=== PATIENT | male | born 1945 | race Caucasian/White ===

== ENCOUNTER → 2016-07-14 | Outpatient (REF) | payer OTHER | LOC: M LAB REF 16:50 | PROVIDERS: ATTEND Family Medicine | DX: E11.65 Type 2 diabetes mellitus with hyperglycemia (principal) ==

== ENCOUNTER → 2017-01-16 | Outpatient (REF) | payer OTHER ==
[2017-01-16 18:11] LABS: BASO % 0.7 % (0.0-1.0); EOS # 0.4 10^3/uL (0.0-0.50); EOS % 6.5 % (0.0-3.0); IMMATURE GRANULOCYTE % 0.3 % (0-0); LYMPH # 1.4 10^3/uL (1.5-4.5); LYMPH % 23.6 % (24.0-44.0); MEAN CORPUSCULAR HEMOGLOBIN 30.8 pg (27.0-33.0); MEAN CORPUSCULAR HGB CONC 33.7 g/dl (32.0-36.5); MEAN CORPUSCULAR VOLUME 91.3 fl (80.0-96.0); MONO # 0.5 10^3/uL (0.0-0.8); NEUTROPHILS # 3.7 10^3/uL (1.8-7.7); NEUTROPHILS % 60.9 % (36.0-66.0); PLATELET COUNT, AUTOMATED 169 10^3/uL (150-450); RED CELL DISTRIBUTION WIDTH 13.2 % (11.5-14.5)
[2017-01-16 18:27] LABS: ALBUMIN 3.9 GM/DL (3.2-5.2); ALKALINE PHOSPHATASE 54 U/L (45-117); ALT/SGPT 24 U/L (12-78); ANION GAP 9 MEQ/L (8-16); AST/SGOT 19 U/L (7-37); BILIRUBIN,TOTAL 0.5 MG/DL (0.2-1.0); BLOOD UREA NITROGEN 18 MG/DL (7-18); CALCIUM LEVEL 8.8 MG/DL (8.8-10.2); CARBON DIOXIDE LEVEL 27 MEQ/L (21-32); CHLORIDE LEVEL 107 MEQ/L (98-107); CHOLESTEROL LEVEL 130 MG/DL (<200); CREATININE FOR GFR 0.92 MG/DL (0.70-1.30); GLOMERULAR FILTRATION RATE > 60.0 (>42); GLUCOSE, FASTING 106 MG/DL (83-110); POTASSIUM SERUM 4.2 MEQ/L (3.5-5.1); SODIUM LEVEL 143 MEQ/L (136-145); TOTAL PROTEIN 6.9 GM/DL (6.4-8.2); TRIGLYCERIDES LEVEL 137 MG/DL (<150)
== END ==
LOC: M LAB REF 17:55
PROVIDERS: ATTEND Family Medicine
DX: E11.21 Type 2 diabetes mellitus with diabetic nephropathy (principal); E78.4 Other hyperlipidemia; E11.65 Type 2 diabetes mellitus with hyperglycemia; I10 Essential (primary) hypertension

== ENCOUNTER 2017-06-11 12:45 | Day surgery (SDC) | payer BC, MEDICARE, OTHER ==
[2017-06-11] MEDS: NS 1,000 ML IV ×2 (13:40)
[2017-06-11] MEDS ORDERED: LIDOCAINE 2% INJ 100 MG/5 ML SDV (FOR ANES.) As Ordered ×2 (14:51)
[2017-06-11] MEDS ORDERED: PROPOFOL 200 MG/20 ML VIAL As Ordered ×4 (14:51)
== END 2017-06-11 14:42 | disposition home or self-care (01) ==
LOC: M OPP 12:45
DX: Z52.4 Kidney donor (principal); Z12.11 Encounter for screening for malignant neoplasm of colon; Z86.010 Personal history of colon polyps; D12.4 Benign neoplasm of descending colon; K63.5 Polyp of colon; Z80.0 Family history of malignant neoplasm of digestive organs; K62.1 Rectal polyp; I10 Essential (primary) hypertension; D12.2 Benign neoplasm of ascending colon; E10.9 Type 1 diabetes mellitus without complications; K63.89 Other specified diseases of intestine; C61 Malignant neoplasm of prostate; Z79.4 Long term (current) use of insulin; E78.5 Hyperlipidemia, unspecified; Z79.82 Long term (current) use of aspirin; Z95.5 Presence of coronary angioplasty implant and graft; Z79.899 Other long term (current) drug therapy; Z92.21 Personal history of antineoplastic chemotherapy; Z92.3 Personal history of irradiation; Z87.891 Personal history of nicotine dependence
CPT/HCPCS: 45385

== ENCOUNTER → 2018-04-16 | Outpatient (REF) | payer MEDICARE, OTHER ==
[~2018-04-16] MED LIST: HYDR25TAB PO; LANTINJ4 SQ; LISI-672 PO; METF500T13 PO; SIMV20TA2 PO; VITA400D PO
[2018-04-16 18:23] LABS: HEMOGLOBIN 13.7 g/dl (13.5-17.5); MEAN CORPUSCULAR HEMOGLOBIN 30.5 pg (27.0-33.0); MEAN CORPUSCULAR HGB CONC 33.4 g/dl (32.0-36.5); MEAN CORPUSCULAR VOLUME 91.3 fl (80.0-96.0); RED BLOOD COUNT 4.49 10^6/uL (4.30-6.10); WHITE BLOOD COUNT 6.1 10^3/uL (4.0-10.0)
[2018-04-16 18:39] LABS: BASO % 0.5 % (0.0-1.0); EOS % 6.2 % (0.0-3.0); LYMPH % 24.4 % (24.0-44.0); MONO % 8.8 % (0.0-5.0); NEUTROPHILS % 59.6 % (36.0-66.0); PLATELET COUNT, AUTOMATED 181 10^3/uL (150-450)
[2018-04-16 18:40] LABS: EOS # 0.4 10^3/uL (0.0-0.50); LYMPH # 1.5 10^3/uL (1.5-4.5); MONO # 0.5 10^3/uL (0.0-0.8); NEUTROPHILS # 3.7 10^3/uL (1.8-7.7)
[2018-04-16 19:07] LABS: ALT/SGPT 50 U/L (12-78); BILIRUBIN,TOTAL 0.7 MG/DL (0.2-1.0); BLOOD UREA NITROGEN 15 MG/DL (7-18); CALCIUM LEVEL 8.5 MG/DL (8.8-10.2); CARBON DIOXIDE LEVEL 25 MEQ/L (21-32); CHLORIDE LEVEL 104 MEQ/L (98-107); CHOLESTEROL LEVEL 87 MG/DL (<200); CREATININE FOR GFR 1.05 MG/DL (0.70-1.30); GLOMERULAR FILTRATION RATE > 60.0 (>42); GLUCOSE, FASTING 132 MG/DL (70-100); HDL CHOLESTEROL 29 MG/DL (>40); LDL CHOLESTEROL 43 MG/DL (<100); NON-HDL-C 58 MG/DL; SODIUM LEVEL 139 MEQ/L (136-145); TOTAL PROTEIN 7.1 GM/DL (6.4-8.2); TRIGLYCERIDES LEVEL 76 MG/DL (<150)
== END ==
LOC: M LAB REF 16:37
PROVIDERS: ATTEND Family Medicine
DX: Z00.00 Encounter for general adult medical examination without abnormal findings (principal); E11.21 Type 2 diabetes mellitus with diabetic nephropathy; E78.49 Other hyperlipidemia; E11.65 Type 2 diabetes mellitus with hyperglycemia; I10 Essential (primary) hypertension

== ENCOUNTER → 2019-03-24 | Outpatient (REF) | payer MEDICARE, OTHER ==
[~2019-03-24] MED LIST changes: -SIMV20TA2 PO; +SIMV20TA22 PO
[2019-03-24 19:34] LABS: C REACTIVE PROTEIN QUANTITATIV < 0.30 MG/DL (0.00-0.30); CPK CREATINE PHOSPHOKINASE 58 U/L (39-308); TOTAL PROTEIN 6.6 GM/DL (6.4-8.2)
[2019-03-24 19:36] LABS: FOLATE 12.9 NG/ML; VITAMIN B12 LEVEL 360 PG/ML
== END ==
LOC: M LABNEURO 17:12
PROVIDERS: ATTEND Psychiatry & Neurology Neurology
DX: G62.9 Polyneuropathy, unspecified (principal); E83.01 Wilson's disease; G72.9 Myopathy, unspecified

== ENCOUNTER → 2019-04-20 | Outpatient (REF) | payer MEDICARE, OTHER ==
[2019-04-20 19:36] LABS: BASO % 0.4 % (0.0-1.0); EOS # 0.4 10^3/uL (0.0-0.5); EOS % 5.4 % (0.0-3.0); HEMATOCRIT 41.4 % (42.0-52.0); HEMOGLOBIN 13.7 g/dl (13.5-17.5); LYMPH # 1.7 10^3/uL (1.5-5.0); LYMPH % 24.1 % (24.0-44.0); MEAN CORPUSCULAR HEMOGLOBIN 30.1 pg (27.0-33.0); MEAN CORPUSCULAR HGB CONC 33.1 g/dl (32.0-36.5); MONO # 0.8 10^3/uL (0.0-0.8); MONO % 10.9 % (0.0-5.0); NEUTROPHILS # 4.2 10^3/uL (1.5-8.5); NEUTROPHILS % 58.8 % (36.0-66.0); PLATELET COUNT, AUTOMATED 195 10^3/uL (150-450); RED BLOOD COUNT 4.55 10^6/uL (4.30-6.10); WHITE BLOOD COUNT 7.2 10^3/uL (4.0-10.0)
[2019-04-20 19:47] LABS: ALBUMIN 4.2 GM/DL (3.2-5.2); ALT/SGPT 25 U/L (12-78); BILIRUBIN,TOTAL 0.6 MG/DL (0.2-1.0); BLOOD UREA NITROGEN 15 MG/DL (7-18); CALCIUM LEVEL 9.8 MG/DL (8.8-10.2); CARBON DIOXIDE LEVEL 29 MEQ/L (21-32); CHLORIDE LEVEL 102 MEQ/L (98-107); CHOLESTEROL LEVEL 113 MG/DL (<200); CHOLESTEROL RISK RATIO 3.424 (<5); CREATININE FOR GFR 1.12 MG/DL (0.70-1.30); GLOMERULAR FILTRATION RATE > 60.0 (>42); GLUCOSE, FASTING 107 MG/DL (70-100); HDL CHOLESTEROL 33 MG/DL (>40); LDL CHOLESTEROL 44 MG/DL (<100); NON-HDL-C 80 MG/DL; POTASSIUM SERUM 3.9 MEQ/L (3.5-5.1); SODIUM LEVEL 138 MEQ/L (136-145); TOTAL PROTEIN 7.1 GM/DL (6.4-8.2); TRIGLYCERIDES LEVEL 178 MG/DL (<150); URIC ACID 7.2 MG/DL (3.5-7.2)
[2019-04-20 20:10] LABS: HEMOGLOBIN A1c 8.3 %
== END ==
LOC: M LAB REF 18:45
PROVIDERS: ATTEND Family Medicine
DX: Z68.41 Body mass index [BMI] 40.0-44.9, adult (principal); I25.10 Atherosclerotic heart disease of native coronary artery without angina pectoris; E11.40 Type 2 diabetes mellitus with diabetic neuropathy, unspecified; M10.09 Idiopathic gout, multiple sites; C61 Malignant neoplasm of prostate; Z00.00 Encounter for general adult medical examination without abnormal findings

== ENCOUNTER → 2020-09-04 | Outpatient (REF) | payer MEDICARE, OTHER ==
[~2020-09-04] MED LIST changes: +HYDR-3490 PO; -HYDR25TAB PO; -LISI-672 PO; +LISI30TA4 PO
[2020-09-04 19:12] LABS: CREATININE, URINE 76.8 MG/DL; MALB URINE SIEMENS 32.6 MG/L; MAU/CREAT RATIO 42.4 MCG/MG (0.0-30.0)
== END ==
LOC: M LAB REF 17:29
PROVIDERS: ATTEND Internal Medicine Endocrinology, Diabetes & Metabolism
DX: E11.65 Type 2 diabetes mellitus with hyperglycemia (principal)

== ENCOUNTER → 2021-08-29 | Outpatient (CLI) | payer MEDICARE, BC, OTHER ==
[~2021-08-29] MED LIST changes: +ALLO100T PO; +AMLO1TAB24 PO; +CEFD300CAP PO; +DOXY100T PO; +DULA3PEN SC; +INSULADS SC; +ISOVUE-370 76% 25ML SYRINGE As Ordered ONE; +LISI10TA22 PO; +METF-838 PO; +MUCI600T31 PO; +ONDA-196 PO; +XTAN40CA PO
== END ==
LOC: M RAD 09:42
DX: J82.82 Acute eosinophilic pneumonia (principal); J98.4 Other disorders of lung

== ENCOUNTER → 2022-04-16 | Outpatient (CLI) | payer MEDICARE, BC, OTHER ==
[~2022-04-16] MED LIST changes: -ISOVUE-370 76% 25ML SYRINGE As Ordered ONE
[2022-04-16 10:00] LABS: HEMATOCRIT 40.4 % (42.0-52.0); HEMOGLOBIN 13.4 g/dl (13.5-17.5); MEAN CORPUSCULAR HGB CONC 33.2 g/dl (32.0-36.5); MEAN CORPUSCULAR VOLUME 90.4 fl (80.0-96.0); PLATELET COUNT, AUTOMATED 153 10^3/uL (150-450); RED BLOOD COUNT 4.47 10^6/uL (4.30-6.10); WHITE BLOOD COUNT 8.4 10^3/uL (4.0-10.0)
[2022-04-16 10:30] LABS: BLOOD UREA NITROGEN 22 MG/DL (9-23); CALCIUM LEVEL 9.3 MG/DL (8.3-10.6); CARBON DIOXIDE LEVEL 25 MMOL/L (20-31); CHLORIDE LEVEL 101 MMOL/L (98-107); CREATININE FOR GFR 0.96 MG/DL (0.70-1.30); GLOMERULAR FILTRATION RATE > 60.0 (>42); GLUCOSE, FASTING 184 MG/DL (74-106); POTASSIUM SERUM 4.3 MMOL/L (3.5-5.1); SODIUM LEVEL 136 MMOL/L (136-145)
== END ==
LOC: M LAB 09:04
PROVIDERS: ATTEND Physician Assistant
DX: I50.32 Chronic diastolic (congestive) heart failure (principal)

== ENCOUNTER → 2022-06-25 | Outpatient (CLI) | payer MEDICARE, BC, OTHER ==
[2022-06-25 11:58] LABS: BLOOD UREA NITROGEN 22 MG/DL (9-23); CALCIUM LEVEL 9.1 MG/DL (8.3-10.6); CARBON DIOXIDE LEVEL 26 MMOL/L (20-31); CHLORIDE LEVEL 107 MMOL/L (98-107); CREATININE FOR GFR 1.13 MG/DL (0.70-1.30); GLOMERULAR FILTRATION RATE > 60.0 (>42); GLUCOSE, FASTING 205 MG/DL (74-106); POTASSIUM SERUM 4.7 MMOL/L (3.5-5.1); SODIUM LEVEL 141 MMOL/L (136-145)
== END ==
LOC: M LAB 11:01
PROVIDERS: ATTEND Internal Medicine Endocrinology, Diabetes & Metabolism
DX: I50.32 Chronic diastolic (congestive) heart failure (principal)

== ENCOUNTER 2022-07-12 23:50 | Inpatient (IN) | payer MEDICARE, BC, OTHER ==
[~2022-07-12] VITALS: Ht 180.3 cm; Wt 114.5 kg
[2022-07-13 00:45] LABS: INR 1.02; PROTHROMBIN TIME 13.6 SECONDS (12.5-14.5)
[2022-07-13 00:54] LABS: BASO % 0.3 % (0.0-1.0); CK-MB VALUE MASS < 1.0 NG/ML (<3.6); EOS # 0.2 10^3/uL (0.0-0.5); EOS % 1.4 % (0.0-3.0); HEMATOCRIT 38.3 % (42.0-52.0); HEMOGLOBIN 13.1 g/dl (13.5-17.5); LYMPH # 0.9 10^3/uL (1.5-5.0); LYMPH % 7.5 % (24.0-44.0); MEAN CORPUSCULAR HGB CONC 34.2 g/dl (32.0-36.5); MEAN CORPUSCULAR VOLUME 93.4 fl (80.0-96.0); MONO # 1.2 10^3/uL (0.0-0.8); MONO % 9.9 % (2.0-8.0); NEUTROPHILS # 9.3 10^3/uL (1.5-8.5); NEUTROPHILS % 79.7 % (36.0-66.0); PLATELET COUNT, AUTOMATED 141 10^3/uL (150-450); WHITE BLOOD COUNT 11.7 10^3/uL (4.0-10.0)
[2022-07-13 00:55] LABS: CPK CREATINE PHOSPHOKINASE 77 U/L (46-171); MB/CK RELATIVE INDEX 1.29 (< OR =4)
[2022-07-13 00:56] LABS: BLOOD UREA NITROGEN 36 MG/DL (9-23); CALCIUM LEVEL 8.1 MG/DL (8.3-10.6); CARBON DIOXIDE LEVEL 22 MMOL/L (20-31); CHLORIDE LEVEL 105 MMOL/L (98-107); CREATININE FOR GFR 1.72 MG/DL (0.70-1.30); GLUCOSE, FASTING 232 MG/DL (74-106); POTASSIUM SERUM 4.8 MMOL/L (3.5-5.1); SODIUM LEVEL 138 MMOL/L (136-145)
[2022-07-13 01:07] LABS: RSV AMPLIFICATION NEGATIVE (NEGATIVE)
[2022-07-13] MEDS ORDERED: NS 1,000 ML IV ONE (01:55)
[2022-07-13] MEDS ORDERED: cefTRIAXone SOD 2 GM in D5W MINI-BAG PLUS 50 ML IV ONE (02:35)
[2022-07-13] MEDS ORDERED: AZITHROMYCIN INJ 500 MG, VIAL MATE ADAPTER 1 EACH in NS 250 ML IV ONE (02:35)
[2022-07-13] MEDS ORDERED: LANTINJ4 INJ (03:12)
[2022-07-13] MEDS ORDERED: FARX1TAB3 PO (03:12)
[2022-07-13] MEDS ORDERED: REPA420I2 INJ (03:12)
[2022-07-13] MEDS ORDERED: SPIR-10 PO (03:12)
[2022-07-13] MEDS ORDERED: METO1TAB87 PO (03:12)
[2022-07-13] MEDS ORDERED: ASPI81TA26 PO (03:12)
[2022-07-13] MEDS ORDERED: CLOP75TA2 PO (03:12)
[2022-07-13] MEDS ORDERED: LISI10TA22 PO (03:12)
[2022-07-13] MEDS ORDERED: METF-838 PO ×2 (03:12)
[2022-07-13] MEDS ORDERED: APAP325T4 PO (03:15)
[2022-07-13] MEDS ORDERED: HOME MED LIST COMPLETE! XX SCH (03:20)
[2022-07-13] MEDS ORDERED: ONDANSETRON 4MG 2ML VIAL As Ordered ONE (04:44)
[2022-07-13] MEDS ORDERED: DEXTROSE 50% 50ML SYRINGE IV PRN (04:45)
[2022-07-13] MEDS ORDERED: GLUCAGON INJ 1MG VIAL SC PRN (04:45)
[2022-07-13] MEDS ORDERED: ONDANSETRON 4MG 2ML VIAL IV PRN (04:45)
[2022-07-13] MEDS ORDERED: GLUCOSE 4GM CHEW TABLET PO PRN (04:45)
[2022-07-13 05:20] VITALS: BP 126/69
[2022-07-13 05:37] LABS: ABG BASE EXCESS -7.7 (-2.0-2.0); ABG HCO3 18.6 MMOL/L (22.0-26.0); ABG O2 SATURATION 95.9 % (95.0-99.0); ABG PARTIAL PRESSURE O2 89.3 mmHg (75.0-100.0); ABG STANDARD HCO3 18.2 MMOL/L. (22.0-26.0); ABG TOTAL CO2 19.9 MMOL/L (23.0-31.0); ABG pH (ARTERIAL) 7.275 UNITS (7.350-7.450)
[2022-07-13] MEDS: LEVEMIR (INSULIN DETEMIR) 1 UNITS/0.01ML SC SCH ×2 (06:03→20:47)
[2022-07-13 07:33] VITALS: BP 109/59
[2022-07-13 07:42] LABS: BLOOD UREA NITROGEN 36 MG/DL (9-23); CALCIUM LEVEL 7.3 MG/DL (8.3-10.6); CARBON DIOXIDE LEVEL 19 MMOL/L (20-31); CHLORIDE LEVEL 107 MMOL/L (98-107); CK-MB VALUE MASS < 1.0 NG/ML (<3.6); CPK CREATINE PHOSPHOKINASE 127 U/L (46-171); GLOMERULAR FILTRATION RATE 44.6 (>42); GLUCOSE, FASTING 285 MG/DL (74-106); MB/CK RELATIVE INDEX 0.78 (< OR =4); POTASSIUM SERUM 4.5 MMOL/L (3.5-5.1); SODIUM LEVEL 137 MMOL/L (136-145)
[2022-07-13 07:59] LABS: ALBUMIN 2.9 G/DL (3.2-5.2); ALKALINE PHOSPHATASE 55 U/L (46-116); ALT/SGPT 10 U/L (7.0-40); AST/SGOT 10 U/L (<34); BILIRUBIN,DIRECT 0.3 MG/DL (<0.4); BILIRUBIN,TOTAL 0.6 MG/DL (0.3-1.2); TOTAL PROTEIN 5.6 G/DL (5.7-8.2)
[2022-07-13] MEDS ORDERED: DAPAGLIFLOZIN PROPANEDIOL 10MG TABLET (FARXIGA) PO SCH (09:00)
[2022-07-13] MEDS ORDERED: SPIRONOLACTONE 25 MG TAB PO SCH (09:00)
[2022-07-13] MEDS ORDERED: LEVEMIR (INSULIN DETEMIR) 1 UNITS/0.01ML SC SCH (09:00)
[2022-07-13] MEDS: METOPROLOL TART 25 MG TABLET PO SCH ×2 (09:00→20:46)
[2022-07-13] MEDS: INSULIN LISPRO (NovoLOG) PER UNIT SC SCH ×3 (09:18→17:50)
[2022-07-13] MEDS: DOXYCYCLINE HYCLATE 100MG TABLET PO SCH ×2 (09:18→20:46)
[2022-07-13] MEDS: CLOPIDOGREL 75 MG TAB PO SCH (09:18)
[2022-07-13] MEDS: ASPIRIN 81MG ENTERIC TABLET PO SCH (09:18)
[2022-07-13] MEDS: HEPARIN SOD (PORCINE) 5000UNITS/ML 1ML VIAL/SYRINGE SQ SCH ×2 (09:19→20:48)
[2022-07-13] MEDS ORDERED: ALBUTEROL SULFATE 2.5MG/0.5ML INH NEB SOLN NEB PRN (10:40)
[2022-07-13 11:07] LABS: BASO % 0.2 % (0.0-1.0); EOS % 0.3 % (0.0-3.0); HEMATOCRIT 37.3 % (42.0-52.0); HEMOGLOBIN 12.1 g/dl (13.5-17.5); LYMPH # 0.8 10^3/uL (1.5-5.0); LYMPH % 7.2 % (24.0-44.0); MEAN CORPUSCULAR HEMOGLOBIN 30.8 pg (27.0-33.0); MEAN CORPUSCULAR HGB CONC 32.4 g/dl (32.0-36.5); MEAN CORPUSCULAR VOLUME 94.9 fl (80.0-96.0); MONO # 1.1 10^3/uL (0.0-0.8); MONO % 9.4 % (2.0-8.0); NEUTROPHILS # 9.6 10^3/uL (1.5-8.5); NEUTROPHILS % 82.6 % (36.0-66.0); PLATELET COUNT, AUTOMATED 140 10^3/uL (150-450); RED BLOOD COUNT 3.93 10^6/uL (4.30-6.10); WHITE BLOOD COUNT 11.6 10^3/uL (4.0-10.0)
[2022-07-13] MEDS: IPRATROPIUM 0.5MG/ALBUTEROL 2.5MG INH SOL UD 3ML (DUONEB) NEB SCH ×2 (11:20→19:52)
[2022-07-13] MEDS: NS 1,000 ML IV SCH ×2 (11:25→20:49)
[2022-07-13 11:38] VITALS: BP 108/56
[2022-07-13] MEDS ORDERED: ACETAMINOPHEN TAB 650MG DOSE (2X325MG) PO ONE (12:50)
[2022-07-13 15:51] VITALS: BP 109/58
[2022-07-13 20:07] VITALS: BP 112/71
[2022-07-13] MEDS ORDERED: INSULIN LISPRO (NovoLOG) PER UNIT SC SCH (21:00)
[2022-07-14] VITALS (9 sets, daily range): BP systolic 125–128; BP diastolic 60–74; O2SAT 90–96
[2022-07-14] MEDS ORDERED: AZITHROMYCIN INJ 500 MG, VIAL MATE ADAPTER 1 EACH in NS 250 ML IV SCH (03:00)
[2022-07-14] MEDS ORDERED: cefTRIAXone SOD 1 GM in D5W MINI-BAG PLUS 50 ML IV SCH (04:00)
[2022-07-14 05:42] LABS: HEMATOCRIT 33.1 % (42.0-52.0); MEAN CORPUSCULAR HEMOGLOBIN 31.2 pg (27.0-33.0); MEAN CORPUSCULAR HGB CONC 33.2 g/dl (32.0-36.5); MEAN CORPUSCULAR VOLUME 93.8 fl (80.0-96.0); PLATELET COUNT, AUTOMATED 130 10^3/uL (150-450); RED BLOOD COUNT 3.53 10^6/uL (4.30-6.10); WHITE BLOOD COUNT 7.4 10^3/uL (4.0-10.0)
[2022-07-14] MEDS: NS 1,000 ML IV SCH (05:59)
[2022-07-14 06:10] LABS: ALBUMIN 2.7 G/DL (3.2-5.2); BILIRUBIN,TOTAL 0.4 MG/DL (0.3-1.2); CALCIUM LEVEL 7.5 MG/DL (8.3-10.6); CREATININE FOR GFR 1.52 MG/DL (0.70-1.30); GLOMERULAR FILTRATION RATE 47.3 (>42); POTASSIUM SERUM 4.3 MMOL/L (3.5-5.1); TOTAL PROTEIN 5.5 G/DL (5.7-8.2)
[2022-07-14] MEDS: IPRATROPIUM 0.5MG/ALBUTEROL 2.5MG INH SOL UD 3ML (DUONEB) NEB SCH (07:11)
[2022-07-14] MEDS ORDERED: LEVEMIR (INSULIN DETEMIR) 1 UNITS/0.01ML SC SCH (09:00)
[2022-07-14] MEDS: CLOPIDOGREL 75 MG TAB PO SCH (09:08)
[2022-07-14] MEDS: ASPIRIN 81MG ENTERIC TABLET PO SCH (09:08)
[2022-07-14] MEDS: METOPROLOL TART 25 MG TABLET PO SCH (09:08)
[2022-07-14] MEDS: DOXYCYCLINE HYCLATE 100MG TABLET PO SCH (09:08)
[2022-07-14] MEDS: HEPARIN SOD (PORCINE) 5000UNITS/ML 1ML VIAL/SYRINGE SQ SCH (09:09)
[2022-07-14] MEDS: INSULIN LISPRO (NovoLOG) PER UNIT SC SCH ×3 (09:09→16:36)
[2022-07-14] MEDS ORDERED: ALB2.5NEB NEB (14:16)
[2022-07-14] MEDS ORDERED: DOXY100T PO (14:16)
[2022-07-14] MEDS ORDERED: ONDA4INJ4 IV (14:16)
[2022-07-14] MEDS ORDERED: INSUDET SC (14:16)
[2022-07-14] MEDS ORDERED: IPRA0.00 NEB (14:16)
[2022-07-14] MEDS ORDERED: INSUHUMDS SC ×2 (14:16)
[2022-07-14] MEDS ORDERED: CEFU50TA PO (14:20)
[2022-07-14] MEDS ORDERED: LEVO1TAB39 PO (14:21)
== END 2022-07-14 16:41 | DRG 871 ==
LOC: EDBD 23:50 → M ED 23:50 → M ED INP 07-13 03:43 → ENRESERV 07-13 04:18 → M PCU 07-13 05:12
PROVIDERS: ADMIT Internal Medicine; ATTEND Internal Medicine
DX: A41.9 Sepsis, unspecified organism (principal); J18.9 Pneumonia, unspecified organism; J96.01 Acute respiratory failure with hypoxia; N17.9 Acute kidney failure, unspecified; E87.20 Acidosis, unspecified; I50.32 Chronic diastolic (congestive) heart failure; I11.0 Hypertensive heart disease with heart failure; I35.1 Nonrheumatic aortic (valve) insufficiency; L71.9 Rosacea, unspecified; J98.4 Other disorders of lung; D69.6 Thrombocytopenia, unspecified; R53.1 Weakness; R91.8 Other nonspecific abnormal finding of lung field; E11.65 Type 2 diabetes mellitus with hyperglycemia; I25.10 Atherosclerotic heart disease of native coronary artery without angina pectoris; Z85.46 Personal history of malignant neoplasm of prostate; Z92.3 Personal history of irradiation; Z79.82 Long term (current) use of aspirin; Z79.02 Long term (current) use of antithrombotics/antiplatelets; Z79.84 Long term (current) use of oral hypoglycemic drugs; Z79.899 Other long term (current) drug therapy; Z87.891 Personal history of nicotine dependence

== ENCOUNTER 2022-07-14 14:57 | Inpatient (IN) | payer MEDICARE, BC, OTHER ==
[~2022-07-14] VITALS: Ht 180.3 cm; Wt 110.2 kg
[~2022-07-14 14:57] MED LIST changes: +ALB2.5NEB NEB; +APAP325T4 PO; +ASPI81TA26 PO; +CEFU50TA PO; +CLOP75TA2 PO; +FARX1TAB3 PO; +INSUDET SC; +INSUHUMDS SC; +IPRA0.00 NEB; +LANTINJ4 INJ; +LEVO1TAB39 PO; +METO1TAB87 PO; +ONDA4INJ4 IV; +REPA420I2 INJ; +SPIR-10 PO
[2022-07-14] MEDS ORDERED: ACETAMINOPHEN TAB 650MG DOSE (2X325MG) PO PRN (16:35)
[2022-07-14] MEDS ORDERED: NS 1,000 ML IV ONE (16:35)
[2022-07-14 17:00] VITALS: BP 150/68; TEMP 98.1; O2SAT 94
[2022-07-14] MEDS ORDERED: LevoFLOXacin 500 MG TABLET PO SCH (18:00)
[2022-07-14] MEDS: LACTOBACILLUS ACIDOPHILUS CAP (BACID) PO SCH (18:26)
[2022-07-14] MEDS: COMBIVENT RESPIMAT 100-20MCG INHALER 4GM INH SCH (19:35)
[2022-07-14 20:00] VITALS: BP 155/70; TEMP 97.7; O2SAT 96
[2022-07-14] MEDS: guaiFENesin 200 MG TAB PO SCH (20:34)
[2022-07-14] MEDS: DOCUSATE SODIUM 100MG CAPSULE PO SCH (20:34)
[2022-07-14] MEDS: SENNA 8.6 MG TAB (SENOKOT) PO SCH (20:34)
[2022-07-14] MEDS: PANTOPRAZOLE 40MG TAB (PROTONIX) PO SCH (20:35)
[2022-07-14] MEDS: METOPROLOL TART 25 MG TABLET PO SCH (20:35)
[2022-07-14] MEDS ORDERED: INSULIN LISPRO (NovoLOG) PER UNIT SC SCH (21:00)
[2022-07-14] MEDS ORDERED: DEXTROSE 50% 50ML SYRINGE IV PRN (22:25)
[2022-07-14] MEDS ORDERED: GLUCOSE 4GM CHEW TABLET PO PRN (22:25)
[2022-07-14] MEDS ORDERED: GLUCAGON INJ 1MG VIAL SC PRN (22:25)
[2022-07-15 06:00] VITALS: BP 144/68; TEMP 98.4; O2SAT 95
[2022-07-15 06:23] LABS: BASO % 0.3 % (0.0-1.0); EOS # 0.4 10^3/uL (0.0-0.5); HEMATOCRIT 34.3 % (42.0-52.0); HEMOGLOBIN 11.3 g/dl (13.5-17.5); LYMPH # 0.7 10^3/uL (1.5-5.0); LYMPH % 8.7 % (24.0-44.0); MEAN CORPUSCULAR HGB CONC 32.9 g/dl (32.0-36.5); MONO # 0.6 10^3/uL (0.0-0.8); MONO % 7.7 % (2.0-8.0); NEUTROPHILS % 77.9 % (36.0-66.0); PLATELET COUNT, AUTOMATED 144 10^3/uL (150-450); RED BLOOD COUNT 3.65 10^6/uL (4.30-6.10); WHITE BLOOD COUNT 7.7 10^3/uL (4.0-10.0)
[2022-07-15 06:53] LABS: ALBUMIN 2.9 G/DL (3.2-5.2); BILIRUBIN,TOTAL 0.6 MG/DL (0.3-1.2); CALCIUM LEVEL 8.3 MG/DL (8.3-10.6); CREATININE FOR GFR 1.29 MG/DL (0.70-1.30); GLOMERULAR FILTRATION RATE 57.2 (>42); POTASSIUM SERUM 4.4 MMOL/L (3.5-5.1); TOTAL PROTEIN 6.1 G/DL (5.7-8.2)
[2022-07-15] MEDS: COMBIVENT RESPIMAT 100-20MCG INHALER 4GM INH SCH ×3 (07:17→19:29)
[2022-07-15] MEDS: DOCUSATE SODIUM 100MG CAPSULE PO SCH ×2 (09:00→21:11)
[2022-07-15] MEDS: guaiFENesin 200 MG TAB PO SCH ×2 (09:08→21:06)
[2022-07-15] MEDS: PANTOPRAZOLE 40MG TAB (PROTONIX) PO SCH ×2 (09:08→21:07)
[2022-07-15] MEDS: ASPIRIN 81MG ENTERIC TABLET PO SCH (09:08)
[2022-07-15] MEDS: CLOPIDOGREL 75 MG TAB PO SCH (09:09)
[2022-07-15] MEDS: SPIRONOLACTONE 25 MG TAB PO SCH (09:09)
[2022-07-15] MEDS: LACTOBACILLUS ACIDOPHILUS CAP (BACID) PO SCH ×2 (09:09→17:53)
[2022-07-15] MEDS: METOPROLOL TART 25 MG TABLET PO SCH ×2 (09:09→21:11)
[2022-07-15] MEDS: LEVEMIR (INSULIN DETEMIR) 1 UNITS/0.01ML SC SCH (09:11)
[2022-07-15] MEDS: INSULIN LISPRO (NovoLOG) PER UNIT SC SCH ×4 (09:11→21:00)
[2022-07-15 14:00] VITALS: BP 138/82; TEMP 98; O2SAT 95
[2022-07-15] MEDS: LevoFLOXacin 750 MG TABLET PO SCH (17:53)
[2022-07-15 20:00] VITALS: BP 133/60; TEMP 97.4; O2SAT 95
[2022-07-15] MEDS ORDERED: LEVEMIR (INSULIN DETEMIR) 1 UNITS/0.01ML SC SCH ×2 (21:00)
[2022-07-15] MEDS: SENNA 8.6 MG TAB (SENOKOT) PO SCH (21:06)
[2022-07-16 06:00] VITALS: BP 125/64; TEMP 97.6; O2SAT 96
[2022-07-16] MEDS: INSULIN LISPRO (NovoLOG) PER UNIT SC SCH ×4 (07:20→20:34)
[2022-07-16] MEDS: LACTOBACILLUS ACIDOPHILUS CAP (BACID) PO SCH ×2 (07:20→17:12)
[2022-07-16] MEDS: DOCUSATE SODIUM 100MG CAPSULE PO SCH ×2 (07:36→20:33)
[2022-07-16] MEDS: PANTOPRAZOLE 40MG TAB (PROTONIX) PO SCH ×2 (07:36→20:33)
[2022-07-16] MEDS: SPIRONOLACTONE 25 MG TAB PO SCH (07:36)
[2022-07-16] MEDS: CLOPIDOGREL 75 MG TAB PO SCH (07:36)
[2022-07-16] MEDS: ASPIRIN 81MG ENTERIC TABLET PO SCH (07:36)
[2022-07-16] MEDS: guaiFENesin 200 MG TAB PO SCH ×2 (07:36→20:34)
[2022-07-16] MEDS: METOPROLOL TART 25 MG TABLET PO SCH ×2 (07:37→20:34)
[2022-07-16] MEDS: LEVEMIR (INSULIN DETEMIR) 1 UNITS/0.01ML SC SCH ×2 (07:37→20:34)
[2022-07-16] MEDS: COMBIVENT RESPIMAT 100-20MCG INHALER 4GM INH SCH ×3 (08:00→20:18)
[2022-07-16 14:00] VITALS: BP 120/60; TEMP 97.7; O2SAT 96
[2022-07-16] MEDS: LevoFLOXacin 750 MG TABLET PO SCH (17:12)
[2022-07-16 20:00] VITALS: BP 123/60; TEMP 97.9; O2SAT 95
[2022-07-16] MEDS: SENNA 8.6 MG TAB (SENOKOT) PO SCH (20:33)
[2022-07-17 06:00] VITALS: BP 124/62; TEMP 97.9; O2SAT 97
[2022-07-17] MEDS: COMBIVENT RESPIMAT 100-20MCG INHALER 4GM INH SCH ×3 (07:07→20:27)
[2022-07-17] MEDS: INSULIN LISPRO (NovoLOG) PER UNIT SC SCH ×4 (09:06→21:00)
[2022-07-17] MEDS: LEVEMIR (INSULIN DETEMIR) 1 UNITS/0.01ML SC SCH ×2 (09:06→21:32)
[2022-07-17] MEDS: METOPROLOL TART 25 MG TABLET PO SCH ×2 (09:08→21:31)
[2022-07-17] MEDS: DOCUSATE SODIUM 100MG CAPSULE PO SCH ×2 (09:08→21:31)
[2022-07-17] MEDS: guaiFENesin 200 MG TAB PO SCH ×2 (09:08→21:31)
[2022-07-17] MEDS: ASPIRIN 81MG ENTERIC TABLET PO SCH (09:08)
[2022-07-17] MEDS: CLOPIDOGREL 75 MG TAB PO SCH (09:09)
[2022-07-17] MEDS: PANTOPRAZOLE 40MG TAB (PROTONIX) PO SCH ×2 (09:09→21:31)
[2022-07-17] MEDS: LACTOBACILLUS ACIDOPHILUS CAP (BACID) PO SCH ×2 (09:09→17:36)
[2022-07-17] MEDS: SPIRONOLACTONE 25 MG TAB PO SCH (09:09)
[2022-07-17 14:00] VITALS: BP 113/57; TEMP 97.2; O2SAT 96
[2022-07-17] MEDS: LevoFLOXacin 750 MG TABLET PO SCH (17:35)
[2022-07-17 20:00] VITALS: BP 128/61; TEMP 97.4; O2SAT 95
[2022-07-17] MEDS: oxyBUTYnin *DITROPAN XL* 5 MG TABCR PO SCH (21:31)
[2022-07-17] MEDS: SENNA 8.6 MG TAB (SENOKOT) PO SCH (21:31)
[2022-07-18] MEDS: COMBIVENT RESPIMAT 100-20MCG INHALER 4GM INH SCH ×3 (06:48→19:46)
[2022-07-18 06:51] VITALS: BP 120/60; TEMP 97.6; O2SAT 96
[2022-07-18] MEDS: DOCUSATE SODIUM 100MG CAPSULE PO SCH ×2 (08:50→20:30)
[2022-07-18] MEDS: LACTOBACILLUS ACIDOPHILUS CAP (BACID) PO SCH ×2 (08:50→17:22)
[2022-07-18] MEDS: guaiFENesin 200 MG TAB PO SCH ×2 (08:50→20:30)
[2022-07-18] MEDS: PANTOPRAZOLE 40MG TAB (PROTONIX) PO SCH ×2 (08:50→20:30)
[2022-07-18] MEDS: SPIRONOLACTONE 25 MG TAB PO SCH (08:50)
[2022-07-18] MEDS: ASPIRIN 81MG ENTERIC TABLET PO SCH (08:50)
[2022-07-18] MEDS: CLOPIDOGREL 75 MG TAB PO SCH (08:50)
[2022-07-18] MEDS: METOPROLOL TART 25 MG TABLET PO SCH ×2 (08:52→20:30)
[2022-07-18] MEDS: LEVEMIR (INSULIN DETEMIR) 1 UNITS/0.01ML SC SCH ×2 (08:53→20:30)
[2022-07-18] MEDS: INSULIN LISPRO (NovoLOG) PER UNIT SC SCH ×4 (08:54→21:00)
[2022-07-18 10:26] LABS: BASO % 0.4 % (0.0-1.0); EOS # 0.4 10^3/uL (0.0-0.5); EOS % 5.9 % (0.0-3.0); HEMATOCRIT 33.4 % (42.0-52.0); LYMPH # 0.6 10^3/uL (1.5-5.0); LYMPH % 8.8 % (24.0-44.0); MEAN CORPUSCULAR HGB CONC 32.9 g/dl (32.0-36.5); MEAN CORPUSCULAR VOLUME 94.1 fl (80.0-96.0); MONO # 0.5 10^3/uL (0.0-0.8); MONO % 7.1 % (2.0-8.0); NEUTROPHILS # 5.6 10^3/uL (1.5-8.5); NEUTROPHILS % 76.4 % (36.0-66.0); PLATELET COUNT, AUTOMATED 204 10^3/uL (150-450); RED BLOOD COUNT 3.55 10^6/uL (4.30-6.10); WHITE BLOOD COUNT 7.3 10^3/uL (4.0-10.0)
[2022-07-18 10:45] LABS: CALCIUM LEVEL 8.5 MG/DL (8.3-10.6); CREATININE FOR GFR 1.39 MG/DL (0.70-1.30); GLOMERULAR FILTRATION RATE 52.5 (>42); POTASSIUM SERUM 4.2 MMOL/L (3.5-5.1)
[2022-07-18 14:00] VITALS: BP 129/59; TEMP 98.5; O2SAT 94
[2022-07-18] MEDS: LevoFLOXacin 750 MG TABLET PO SCH (17:22)
[2022-07-18] MEDS ORDERED: CEPACOL LOZENGE PO PRN (18:15)
[2022-07-18 19:42] VITALS: BP 142/66; TEMP 97; O2SAT 97
[2022-07-18] MEDS: SENNA 8.6 MG TAB (SENOKOT) PO SCH (20:30)
[2022-07-18] MEDS: oxyBUTYnin *DITROPAN XL* 5 MG TABCR PO SCH (20:30)
[2022-07-19 05:44] VITALS: BP 128/60; TEMP 97; O2SAT 98
[2022-07-19] MEDS: COMBIVENT RESPIMAT 100-20MCG INHALER 4GM INH SCH ×3 (07:08→20:01)
[2022-07-19] MEDS: LACTOBACILLUS ACIDOPHILUS CAP (BACID) PO SCH ×2 (09:36→17:41)
[2022-07-19] MEDS: DOCUSATE SODIUM 100MG CAPSULE PO SCH ×2 (09:36→20:30)
[2022-07-19] MEDS: SPIRONOLACTONE 25 MG TAB PO SCH (09:36)
[2022-07-19] MEDS: ASPIRIN 81MG ENTERIC TABLET PO SCH (09:36)
[2022-07-19] MEDS: CLOPIDOGREL 75 MG TAB PO SCH (09:37)
[2022-07-19] MEDS: PANTOPRAZOLE 40MG TAB (PROTONIX) PO SCH ×2 (09:37→20:28)
[2022-07-19] MEDS: METOPROLOL TART 25 MG TABLET PO SCH ×2 (09:37→20:28)
[2022-07-19] MEDS: guaiFENesin 200 MG TAB PO SCH ×2 (09:37→20:29)
[2022-07-19] MEDS: LEVEMIR (INSULIN DETEMIR) 1 UNITS/0.01ML SC SCH ×2 (09:38→20:29)
[2022-07-19] MEDS: INSULIN LISPRO (NovoLOG) PER UNIT SC SCH ×4 (09:45→21:00)
[2022-07-19 14:00] VITALS: BP 135/63; TEMP 97.2; O2SAT 94
[2022-07-19] MEDS: LevoFLOXacin 750 MG TABLET PO SCH (17:41)
[2022-07-19 20:00] VITALS: BP 168/79; TEMP 97.7; O2SAT 94
[2022-07-19] MEDS: SENNA 8.6 MG TAB (SENOKOT) PO SCH (20:29)
[2022-07-19] MEDS: oxyBUTYnin *DITROPAN XL* 5 MG TABCR PO SCH (20:29)
[2022-07-20 06:00] VITALS: BP 125/65; TEMP 96.6; O2SAT 97
[2022-07-20] MEDS: COMBIVENT RESPIMAT 100-20MCG INHALER 4GM INH SCH ×3 (06:55→20:39)
[2022-07-20] MEDS: LACTOBACILLUS ACIDOPHILUS CAP (BACID) PO SCH ×2 (08:27→17:29)
[2022-07-20] MEDS: INSULIN LISPRO (NovoLOG) PER UNIT SC SCH ×4 (08:27→20:56)
[2022-07-20] MEDS: METOPROLOL TART 25 MG TABLET PO SCH ×2 (08:28→20:52)
[2022-07-20] MEDS: ASPIRIN 81MG ENTERIC TABLET PO SCH (08:28)
[2022-07-20] MEDS: DOCUSATE SODIUM 100MG CAPSULE PO SCH ×2 (08:28→20:52)
[2022-07-20] MEDS: CLOPIDOGREL 75 MG TAB PO SCH (08:28)
[2022-07-20] MEDS: SPIRONOLACTONE 25 MG TAB PO SCH (08:28)
[2022-07-20] MEDS: PANTOPRAZOLE 40MG TAB (PROTONIX) PO SCH ×2 (08:29→20:52)
[2022-07-20] MEDS: guaiFENesin 200 MG TAB PO SCH ×2 (08:29→20:51)
[2022-07-20] MEDS: LEVEMIR (INSULIN DETEMIR) 1 UNITS/0.01ML SC SCH ×2 (08:30→20:51)
[2022-07-20 14:00] VITALS: BP 143/66; TEMP 97.1
[2022-07-20] MEDS: LevoFLOXacin 750 MG TABLET PO SCH (17:29)
[2022-07-20 20:00] VITALS: BP 129/63; TEMP 97.1; O2SAT 96
[2022-07-20] MEDS: SENNA 8.6 MG TAB (SENOKOT) PO SCH (20:52)
[2022-07-20] MEDS: oxyBUTYnin *DITROPAN XL* 5 MG TABCR PO SCH (20:52)
[2022-07-21 06:00] VITALS: BP 115/69; TEMP 96.4; O2SAT 99
[2022-07-21 06:31] LABS: BASO % 0.5 % (0.0-1.0); EOS # 0.4 10^3/uL (0.0-0.5); EOS % 4.4 % (0.0-3.0); HEMATOCRIT 34.5 % (42.0-52.0); HEMOGLOBIN 11.3 g/dl (13.5-17.5); LYMPH # 1.4 10^3/uL (1.5-5.0); LYMPH % 17.7 % (24.0-44.0); MEAN CORPUSCULAR HGB CONC 32.8 g/dl (32.0-36.5); MEAN CORPUSCULAR VOLUME 94.8 fl (80.0-96.0); MONO # 0.7 10^3/uL (0.0-0.8); MONO % 8.1 % (2.0-8.0); NEUTROPHILS # 5.5 10^3/uL (1.5-8.5); NEUTROPHILS % 67.7 % (36.0-66.0); PLATELET COUNT, AUTOMATED 266 10^3/uL (150-450); RED BLOOD COUNT 3.64 10^6/uL (4.30-6.10); WHITE BLOOD COUNT 8.2 10^3/uL (4.0-10.0)
[2022-07-21 06:59] LABS: CALCIUM LEVEL 8.6 MG/DL (8.3-10.6); CREATININE FOR GFR 1.36 MG/DL (0.70-1.30); GLOMERULAR FILTRATION RATE 53.8 (>42); POTASSIUM SERUM 4.5 MMOL/L (3.5-5.1)
[2022-07-21] MEDS: COMBIVENT RESPIMAT 100-20MCG INHALER 4GM INH SCH ×3 (07:10→20:06)
[2022-07-21] MEDS: CLOPIDOGREL 75 MG TAB PO SCH (08:30)
[2022-07-21] MEDS: ASPIRIN 81MG ENTERIC TABLET PO SCH (08:30)
[2022-07-21] MEDS: PANTOPRAZOLE 40MG TAB (PROTONIX) PO SCH ×2 (08:30→21:04)
[2022-07-21] MEDS: guaiFENesin 200 MG TAB PO SCH ×2 (08:30→21:04)
[2022-07-21] MEDS: DOCUSATE SODIUM 100MG CAPSULE PO SCH ×2 (08:31→21:04)
[2022-07-21] MEDS: METOPROLOL TART 25 MG TABLET PO SCH ×2 (08:31→21:04)
[2022-07-21] MEDS: LACTOBACILLUS ACIDOPHILUS CAP (BACID) PO SCH ×2 (08:31→17:09)
[2022-07-21] MEDS: SPIRONOLACTONE 25 MG TAB PO SCH (08:31)
[2022-07-21] MEDS: LEVEMIR (INSULIN DETEMIR) 1 UNITS/0.01ML SC SCH ×2 (08:32→21:05)
[2022-07-21] MEDS: INSULIN LISPRO (NovoLOG) PER UNIT SC SCH ×4 (08:32→19:39)
[2022-07-21] MEDS: TORSEMIDE 20 MG TAB PO SCH (12:50)
[2022-07-21 14:00] VITALS: BP 131/61; TEMP 97.8; O2SAT 97
[2022-07-21 19:25] VITALS: BP 131/65; TEMP 97.1; O2SAT 98
[2022-07-21] MEDS: SENNA 8.6 MG TAB (SENOKOT) PO SCH (21:04)
[2022-07-21] MEDS: oxyBUTYnin *DITROPAN XL* 5 MG TABCR PO SCH (21:04)
[2022-07-22 06:00] VITALS: BP 139/69; TEMP 96.9; O2SAT 97
[2022-07-22] MEDS: COMBIVENT RESPIMAT 100-20MCG INHALER 4GM INH SCH (07:34)
[2022-07-22] MEDS: ASPIRIN 81MG ENTERIC TABLET PO SCH (07:53)
[2022-07-22] MEDS: PANTOPRAZOLE 40MG TAB (PROTONIX) PO SCH (07:53)
[2022-07-22] MEDS: TORSEMIDE 20 MG TAB PO SCH (07:53)
[2022-07-22] MEDS: LACTOBACILLUS ACIDOPHILUS CAP (BACID) PO SCH (07:53)
[2022-07-22] MEDS: CLOPIDOGREL 75 MG TAB PO SCH (07:53)
[2022-07-22] MEDS: SPIRONOLACTONE 25 MG TAB PO SCH (07:53)
[2022-07-22] MEDS: DOCUSATE SODIUM 100MG CAPSULE PO SCH (07:53)
[2022-07-22] MEDS: guaiFENesin 200 MG TAB PO SCH (07:53)
[2022-07-22 07:54] VITALS: BP 139/69
[2022-07-22] MEDS: METOPROLOL TART 25 MG TABLET PO SCH (07:54)
[2022-07-22] MEDS: LEVEMIR (INSULIN DETEMIR) 1 UNITS/0.01ML SC SCH (07:55)
[2022-07-22] MEDS: INSULIN LISPRO (NovoLOG) PER UNIT SC SCH (07:55)
[2022-07-22 09:12] LABS: ALBUMIN 3.1 G/DL (3.2-5.2); CALCIUM LEVEL 8.8 MG/DL (8.3-10.6); CREATININE FOR GFR 1.6 MG/DL (0.70-1.30); GLOMERULAR FILTRATION RATE 44.6 (>42); PHOSPHORUS LEVEL 4.1 MG/DL (2.4-5.1); POTASSIUM SERUM 4.3 MMOL/L (3.5-5.1)
[2022-07-22] MEDS ORDERED: INSUDET SC (09:27)
[2022-07-22] MEDS ORDERED: ASPI81TA26 PO (09:27)
[2022-07-22] MEDS ORDERED: LANTINJ4 INJ (09:27)
[2022-07-22] MEDS ORDERED: PANT40TA29 PO (09:27)
[2022-07-22] MEDS ORDERED: METO1TAB87 PO (09:27)
[2022-07-22] MEDS ORDERED: DITR5TAB PO (09:27)
[2022-07-22] MEDS ORDERED: ALDA25TA2 PO (09:27)
[2022-07-22] MEDS ORDERED: CLOP75TA2 PO (09:27)
[2022-07-22] MEDS ORDERED: COMBAER6 INH (09:27)
[2022-07-22] MEDS ORDERED: TORS20TA2 PO (09:27)
== END 2022-07-22 10:50 | disposition home or self-care (01) | DRG 194 ==
LOC: M PM&R 16:47
PROVIDERS: ADMIT Physical Medicine & Rehabilitation; ATTEND Physical Medicine & Rehabilitation
DX: J18.9 Pneumonia, unspecified organism (principal); I50.32 Chronic diastolic (congestive) heart failure; N17.9 Acute kidney failure, unspecified; R53.1 Weakness; I35.1 Nonrheumatic aortic (valve) insufficiency; I25.10 Atherosclerotic heart disease of native coronary artery without angina pectoris; I11.0 Hypertensive heart disease with heart failure; E78.5 Hyperlipidemia, unspecified; E11.9 Type 2 diabetes mellitus without complications; R32 Unspecified urinary incontinence; J98.4 Other disorders of lung; R91.8 Other nonspecific abnormal finding of lung field; D69.6 Thrombocytopenia, unspecified; M10.9 Gout, unspecified; Z74.09 Other reduced mobility; Z74.1 Need for assistance with personal care; Z85.46 Personal history of malignant neoplasm of prostate; Z92.3 Personal history of irradiation; Z79.82 Long term (current) use of aspirin; Z79.4 Long term (current) use of insulin; Z79.899 Other long term (current) drug therapy; Z88.8 Allergy status to other drugs, medicaments and biological substances; Z95.5 Presence of coronary angioplasty implant and graft; Z87.891 Personal history of nicotine dependence; Z90.49 Acquired absence of other specified parts of digestive tract; Z90.5 Acquired absence of kidney

== ENCOUNTER → 2022-09-02 | Outpatient (CLI) | payer MEDICARE, BC, OTHER ==
[~2022-09-02] MED LIST changes: +ALDA25TA2 PO; +COMBAER6 INH; +DITR5TAB PO; +FLOM0.4C39 PO; +LANTINJ4 SC; +LEVO1TAB40 PO; +LUPR45IN IM; +METO25TA4 PO; +OCUV1CAP4 PO; +PANT40TA29 PO; +REPA420I2 SC; +TORS20TA2 PO
[2022-09-02 09:52] LABS: HEMATOCRIT 38.5 % (42.0-52.0); HEMOGLOBIN 12.5 g/dl (13.5-17.5); MEAN CORPUSCULAR HEMOGLOBIN 30.2 pg (27.0-33.0); MEAN CORPUSCULAR HGB CONC 32.5 g/dl (32.0-36.5); PLATELET COUNT, AUTOMATED 157 10^3/uL (150-450); RED BLOOD COUNT 4.14 10^6/uL (4.30-6.10); WHITE BLOOD COUNT 6.9 10^3/uL (4.0-10.0)
[2022-09-02 10:27] LABS: ALBUMIN 3.5 G/DL (3.2-5.2); ALKALINE PHOSPHATASE 79 U/L (46-116); ALT/SGPT < 9 U/L (7.0-40); AST/SGOT 8 U/L (<34); BILIRUBIN,TOTAL 0.6 MG/DL (0.3-1.2); BLOOD UREA NITROGEN 37 MG/DL (9-23); CALCIUM LEVEL 9.4 MG/DL (8.3-10.6); CARBON DIOXIDE LEVEL 26 MMOL/L (20-31); CHLORIDE LEVEL 101 MMOL/L (98-107); CHOLESTEROL LEVEL 129 MG/DL (<200); CHOLESTEROL RISK RATIO 3.99 (<5); CREATININE FOR GFR 1.45 MG/DL (0.70-1.30); GLUCOSE, FASTING 141 MG/DL (74-106); HDL CHOLESTEROL 32.3 MG/DL (>40); LDL CHOLESTEROL 53.7 MG/DL (<100); NON-HDL-C 96.7 MG/DL; POTASSIUM SERUM 4.2 MMOL/L (3.5-5.1); SODIUM LEVEL 138 MMOL/L (136-145); TOTAL PROTEIN 6.8 G/DL (5.7-8.2); TRIGLYCERIDES LEVEL 215 MG/DL (<150)
== END ==
LOC: M LAB 08:45
PROVIDERS: ATTEND Physician Assistant
DX: I50.32 Chronic diastolic (congestive) heart failure (principal); I25.10 Atherosclerotic heart disease of native coronary artery without angina pectoris

== ENCOUNTER → 2022-09-22 | Outpatient (CLI) | payer MEDICARE, BC, OTHER ==
[2022-09-22 10:43] LABS: PROSTATIC SPECIFIC AG MONITOR 1.68 NG/ML (< 4.00)
== END ==
LOC: M LAB 09:29
PROVIDERS: ATTEND Urology
DX: C61 Malignant neoplasm of prostate (principal)

== ENCOUNTER → 2022-11-25 | Outpatient (CLI) | payer MEDICARE, BC, OTHER | LOC: M LAB 12:23 | PROVIDERS: ATTEND Urology | DX: C61 Malignant neoplasm of prostate (principal) ==

== ENCOUNTER 2022-11-27 17:23 | Emergency (ER) | payer MEDICARE, BC, OTHER ==
[~2022-11-27] VITALS: Ht 177.8 cm; Wt 105.0 kg
[2022-11-27] MEDS ORDERED: LIDOCAINE 2% 5ML JELLY UROJET TOP ONE (18:30)
[2022-11-27 19:35] VITALS: BP 122/58; TEMP 97.6; O2SAT 97
== END 2022-11-27 19:47 | disposition home or self-care (01) ==
LOC: M ED 17:23
DX: T83.091A Other mechanical complication of indwelling urethral catheter, initial encounter (principal); Z79.82 Long term (current) use of aspirin; Z79.4 Long term (current) use of insulin; Z79.899 Other long term (current) drug therapy; Z88.8 Allergy status to other drugs, medicaments and biological substances

== ENCOUNTER → 2022-12-11 | Outpatient (REF) | payer MEDICARE, OTHER ==
[2022-12-11 17:47] LABS: APPEARANCE, URINE HAZY (CLEAR); BACTERIA, URINE AUTO 1+ (NEGATIVE); BILIRUBIN, URINE AUTO NEGATIVE (NEGATIVE); BLOOD, URINE BLOOD 1+ (NEGATIVE); COLOR, URINE RED (YELLOW); GLUCOSE, URINE (UA) AUTO NEGATIVE (NEGATIVE); KETONE, URINE AUTO NEGATIVE (NEGATIVE); LEUKOCYTE ESTERASE, URINE AUTO 3+ (NEGATIVE); NITRITE, URINE AUTO NEGATIVE (NEGATIVE); PROTEIN, URINE AUTO 1+ mg/dL (NEGATIVE); RBC, URINE AUTO 4 /HPF (0-3); SPECIFIC GRAVITY URINE AUTO 1.011 (1.002-1.035); SQUAMOUS EPITHELIAL CELL UR AU 0 /HPF (0-6); UROBILINOGEN, URINE AUTO 0.2 mg/dL (0.0-2.0); WBC, URINE AUTO 84 /HPF (0-3)
== END ==
LOC: M SMT 17:05
PROVIDERS: ATTEND Urology
DX: N39.0 Urinary tract infection, site not specified (principal)

== ENCOUNTER → 2023-01-08 | Outpatient (REF) | payer MEDICARE, OTHER ==
[2023-01-09 14:57] LABS: APPEARANCE, URINE CLOUDY (CLEAR); BACTERIA, URINE AUTO 1+ (NEGATIVE); BILIRUBIN, URINE AUTO NEGATIVE (NEGATIVE); BLOOD, URINE BLOOD 2+ (NEGATIVE); COLOR, URINE AMBER (YELLOW); GLUCOSE, URINE (UA) AUTO NEGATIVE (NEGATIVE); KETONE, URINE AUTO NEGATIVE (NEGATIVE); LEUKOCYTE ESTERASE, URINE AUTO 3+ (NEGATIVE); MUCUS, URINE SMALL (NEGATIVE); NITRITE, URINE AUTO NEGATIVE (NEGATIVE); PROTEIN, URINE AUTO 2+ mg/dL (NEGATIVE); RBC, URINE AUTO 39 /HPF (0-3); SPECIFIC GRAVITY URINE AUTO 1.017 (1.002-1.035); SQUAMOUS EPITHELIAL CELL UR AU 0 /HPF (0-6); WBC, URINE AUTO TNTC /HPF (0-3)
== END ==
LOC: M SMT 12:53
PROVIDERS: ATTEND Urology
DX: N39.0 Urinary tract infection, site not specified (principal)

== ENCOUNTER → 2023-01-09 | Outpatient (CLI) | payer MEDICARE, OTHER, BC ==
[2023-01-09 10:59] LABS: PROSTATIC SPECIFIC AG MONITOR 2.9 NG/ML (< 4.00)
== END ==
LOC: M LAB 09:19
PROVIDERS: ATTEND Urology
DX: C61 Malignant neoplasm of prostate (principal)

== ENCOUNTER → 2023-02-16 | Outpatient (CLI) | payer MEDICARE, OTHER, BC | LOC: M LAB 11:31 | PROVIDERS: ATTEND Urology | DX: C61 Malignant neoplasm of prostate (principal) ==

== ENCOUNTER → 2023-03-23 | Outpatient (CLI) | payer MEDICARE, BC, OTHER | LOC: M EKG 08:02 | PROVIDERS: ATTEND Physician Assistant | DX: I45.3 Trifascicular block (principal) ==

== ENCOUNTER → 2023-04-06 | Outpatient (REF) | payer MEDICARE, BC, OTHER ==
[2023-04-06 17:25] LABS: INR 1.05; PARTIAL THROMBOPLASTIN TIME 26.6 SECONDS (24.8-34.2); PROTHROMBIN TIME 13.4 SECONDS (12.5-14.5)
== END ==
LOC: M LAB REF 16:14
PROVIDERS: ATTEND Nurse Practitioner Family
DX: R04.0 Epistaxis (principal)

== ENCOUNTER → 2023-04-20 | Outpatient (CLI) | payer MEDICARE, BC | LOC: M LAB 12:13 | PROVIDERS: ATTEND Urology | DX: C61 Malignant neoplasm of prostate (principal) ==

== ENCOUNTER 2023-05-20 15:25 | Inpatient (IN) | payer MEDICARE, BC ==
[~2023-05-20] VITALS: Ht 177.8 cm; Wt 105.1 kg
[2023-05-20 16:13] LABS: BASO % 0.3 % (0.0-1.0); EOS # 0.2 10^3/uL (0.0-0.5); EOS % 1.7 % (0.0-3.0); HEMATOCRIT 32.5 % (42.0-52.0); HEMOGLOBIN 11.2 g/dl (13.5-17.5); LYMPH # 0.7 10^3/uL (1.5-5.0); LYMPH % 5.9 % (24.0-44.0); MEAN CORPUSCULAR HEMOGLOBIN 31.3 pg (27.0-33.0); MEAN CORPUSCULAR HGB CONC 34.5 g/dl (32.0-36.5); MEAN CORPUSCULAR VOLUME 90.8 fl (80.0-96.0); MONO # 0.8 10^3/uL (0.0-0.8); MONO % 7.1 % (2.0-8.0); NEUTROPHILS # 9.4 10^3/uL (1.5-8.5); NEUTROPHILS % 83.9 % (36.0-66.0); PLATELET COUNT, AUTOMATED 172 10^3/uL (150-450); RED BLOOD COUNT 3.58 10^6/uL (4.30-6.10); WHITE BLOOD COUNT 11.2 10^3/uL (4.0-10.0)
[2023-05-20] MEDS: cefTRIAXone SOD 2 GM in D5W MINI-BAG PLUS 50 ML IV ONE (16:19)
[2023-05-20] MEDS: NS 500 ML IV ONE (16:25)
[2023-05-20 16:28] LABS: INR 1.18; PARTIAL THROMBOPLASTIN TIME 39.5 SECONDS (24.8-34.2); PROTHROMBIN TIME 14.6 SECONDS (12.5-14.5)
[2023-05-20 16:43] LABS: AMYLASE 32 U/L (30-118)
[2023-05-20 16:44] LABS: ALBUMIN 2.9 G/DL (3.2-5.2); ALKALINE PHOSPHATASE 73 U/L (46-116); ALT/SGPT < 9 U/L (7.0-40); AST/SGOT < 8 U/L (<34); BILIRUBIN,DIRECT 0.3 MG/DL (<0.4); BILIRUBIN,TOTAL 0.9 MG/DL (0.3-1.2); BLOOD UREA NITROGEN 31 MG/DL (9-23); CALCIUM LEVEL 8.9 MG/DL (8.3-10.6); CARBON DIOXIDE LEVEL 26 MMOL/L (20-31); CHLORIDE LEVEL 98 MMOL/L (98-107); CREATININE FOR GFR 1.84 MG/DL (0.70-1.30); GLOMERULAR FILTRATION RATE 37.9 (>35); GLUCOSE, FASTING 264 MG/DL (74-106); POTASSIUM SERUM 4.1 MMOL/L (3.5-5.1); SODIUM LEVEL 133 MMOL/L (136-145); TOTAL PROTEIN 6.4 G/DL (5.7-8.2)
[2023-05-20 16:49] LABS: PROCALCITONIN 0.26 ng/ml
[2023-05-20 17:33] LABS: APPEARANCE, URINE HAZY (CLEAR); BACTERIA, URINE AUTO NEGATIVE (NEGATIVE); BILIRUBIN, URINE AUTO NEGATIVE (NEGATIVE); BLOOD, URINE BLOOD 2+ (NEGATIVE); COLOR, URINE AMBER (YELLOW); GLUCOSE, URINE (UA) AUTO NEGATIVE (NEGATIVE); KETONE, URINE AUTO NEGATIVE (NEGATIVE); LEUKOCYTE ESTERASE, URINE AUTO 1+ (NEGATIVE); NITRITE, URINE AUTO NEGATIVE (NEGATIVE); PROTEIN, URINE AUTO 1+ mg/dL (NEGATIVE); RBC, URINE AUTO 24 /HPF (0-3); SPECIFIC GRAVITY URINE AUTO 1.018 (1.002-1.035); SQUAMOUS EPITHELIAL CELL UR AU 0 /HPF (0-6); UROBILINOGEN, URINE AUTO 0.2 mg/dL (0.0-2.0); WBC, URINE AUTO 16 /HPF (0-3)
[2023-05-20] MEDS ORDERED: DOCU100C16 PO (19:27)
[2023-05-20] MEDS ORDERED: NOVOINJ3 SC (19:27)
[2023-05-20] MEDS ORDERED: BACTDSTA PO (19:27)
[2023-05-20] MEDS ORDERED: ENZA40TA PO (19:27)
[2023-05-20] MEDS ORDERED: TAMS1CAP17 PO (19:27)
[2023-05-20] MEDS ORDERED: HOME MED LIST COMPLETE! XX SCH (19:30)
[2023-05-20] MEDS: NS 1,000 ML IV SCH (19:30)
[2023-05-20] MEDS: ACETAMINOPHEN 500 MG TAB PO ONE (19:31)
[2023-05-20] MEDS ORDERED: DEXTROSE 50% 50ML SYRINGE IV PRN (19:50)
[2023-05-20] MEDS ORDERED: GLUCAGON INJ 1MG VIAL SC PRN (19:50)
[2023-05-20] MEDS ORDERED: GLUCOSE 4GM CHEW TABLET PO PRN (19:50)
[2023-05-20] MEDS: DOXYCYCLINE HYCLATE 100 MG in D5W MINI-BAG PLUS 100 ML IV SCH (21:02)
[2023-05-20] MEDS: LEVEMIR (INSULIN DETEMIR) 1 UNITS/0.01ML SC SCH (21:53)
[2023-05-20 23:13] VITALS: BP 118/55; TEMP 97.9; O2SAT 90
[2023-05-21 05:37] VITALS: BP 136/67; TEMP 97.2; O2SAT 93
[2023-05-21 06:51] LABS: BASO % 0.2 % (0.0-1.0); EOS # 0.3 10^3/uL (0.0-0.5); EOS % 3.9 % (0.0-3.0); HEMATOCRIT 30.4 % (42.0-52.0); HEMOGLOBIN 10.4 g/dl (13.5-17.5); LYMPH # 0.6 10^3/uL (1.5-5.0); LYMPH % 7.3 % (24.0-44.0); MEAN CORPUSCULAR HEMOGLOBIN 31.6 pg (27.0-33.0); MEAN CORPUSCULAR HGB CONC 34.2 g/dl (32.0-36.5); MEAN CORPUSCULAR VOLUME 92.4 fl (80.0-96.0); MONO # 0.7 10^3/uL (0.0-0.8); MONO % 8.6 % (2.0-8.0); NEUTROPHILS # 6.4 10^3/uL (1.5-8.5); NEUTROPHILS % 79.1 % (36.0-66.0); PLATELET COUNT, AUTOMATED 163 10^3/uL (150-450); RED BLOOD COUNT 3.29 10^6/uL (4.30-6.10); WHITE BLOOD COUNT 8.1 10^3/uL (4.0-10.0)
[2023-05-21 07:08] LABS: CALCIUM LEVEL 8.3 MG/DL (8.3-10.6); CREATININE FOR GFR 1.62 MG/DL (0.70-1.30); GLOMERULAR FILTRATION RATE 43.9 (>35); POTASSIUM SERUM 3.8 MMOL/L (3.5-5.1)
[2023-05-21] MEDS: PANTOPRAZOLE 40MG TAB (PROTONIX) PO SCH (08:15)
[2023-05-21] MEDS: TAMSULOSIN 0.4 MG CAP PO SCH (08:15)
[2023-05-21] MEDS: ASPIRIN 81MG ENTERIC TABLET PO SCH (08:15)
[2023-05-21] MEDS: INSULIN LISPRO (NovoLOG) PER UNIT SC SCH (08:16)
[2023-05-21 14:00] VITALS: BP 120/60; TEMP 97.9; O2SAT 96
[2023-05-21] MEDS: ACETAMINOPHEN TAB 650MG DOSE (2X325MG) PO PRN (16:03)
[2023-05-21 16:05] VITALS: TEMP 101.7
[2023-05-21] MEDS: cefTRIAXone SOD 2 GM in D5W MINI-BAG PLUS 50 ML IV SCH (16:27)
[2023-05-21 17:15] VITALS: TEMP 102.1
[2023-05-21 18:15] VITALS: TEMP 100
[2023-05-21 20:00] VITALS: BP 132/60; TEMP 99.6; O2SAT 95
[2023-05-21] MEDS ORDERED: BISACODYL 10MG SUPP PR PRN (20:45)
[2023-05-21] MEDS: DOCUSATE SODIUM 100MG CAPSULE PO SCH (21:04)
[2023-05-21] MEDS: DOXYCYCLINE HYCLATE 100MG TABLET PO SCH (21:04)
[2023-05-21] MEDS: MOM 30ML SUSPENSION UDC PO PRN (21:04)
[2023-05-22] VITALS (7 sets, daily range): BP systolic 129–130; BP diastolic 60–67; TEMP 97.7–100.6; O2SAT 93–97
[2023-05-22 07:30] LABS: BASO % 0.1 % (0.0-1.0); EOS # 0.2 10^3/uL (0.0-0.5); EOS % 2.7 % (0.0-3.0); HEMATOCRIT 28.4 % (42.0-52.0); HEMOGLOBIN 9.8 g/dl (13.5-17.5); LYMPH # 0.7 10^3/uL (1.5-5.0); LYMPH % 9.3 % (24.0-44.0); MEAN CORPUSCULAR HEMOGLOBIN 31.7 pg (27.0-33.0); MEAN CORPUSCULAR HGB CONC 34.5 g/dl (32.0-36.5); MEAN CORPUSCULAR VOLUME 91.9 fl (80.0-96.0); MONO # 0.7 10^3/uL (0.0-0.8); MONO % 9.3 % (2.0-8.0); NEUTROPHILS # 5.8 10^3/uL (1.5-8.5); NEUTROPHILS % 77.5 % (36.0-66.0); PLATELET COUNT, AUTOMATED 176 10^3/uL (150-450); RED BLOOD COUNT 3.09 10^6/uL (4.30-6.10); WHITE BLOOD COUNT 7.4 10^3/uL (4.0-10.0)
[2023-05-22 07:57] LABS: CALCIUM LEVEL 8.6 MG/DL (8.3-10.6); CREATININE FOR GFR 1.3 MG/DL (0.70-1.30); GLOMERULAR FILTRATION RATE 56.5 (>35); POTASSIUM SERUM 4.3 MMOL/L (3.5-5.1)
[2023-05-22] MEDS: COLCHICINE 0.6 MG TABLET PO SCH (08:29)
[2023-05-22] MEDS: LEVEMIR (INSULIN DETEMIR) 1 UNITS/0.01ML SC SCH (08:31)
[2023-05-22] MEDS: SENNA 8.6 MG TAB (SENOKOT) PO SCH (12:10)
[2023-05-22] MEDS: MAGNESIUM CITRATE 300ML BTL PO ONE (12:11)
[2023-05-22] MEDS: BISACODYL 10MG SUPP PR ONE (12:11)
[2023-05-22] MEDS: BISACODYL 10MG SUPP PR SCH (21:00)
[2023-05-23 00:30] VITALS: TEMP 98.7
[2023-05-23 05:00] VITALS: BP 124/62; TEMP 98.7; O2SAT 94
[2023-05-23 06:00] LABS: BASO % 0.5 % (0.0-1.0); EOS # 0.3 10^3/uL (0.0-0.5); EOS % 4.6 % (0.0-3.0); HEMATOCRIT 31.7 % (42.0-52.0); HEMOGLOBIN 10.3 g/dl (13.5-17.5); LYMPH # 0.6 10^3/uL (1.5-5.0); LYMPH % 9.9 % (24.0-44.0); MEAN CORPUSCULAR HGB CONC 32.5 g/dl (32.0-36.5); MEAN CORPUSCULAR VOLUME 95.5 fl (80.0-96.0); MONO # 0.7 10^3/uL (0.0-0.8); MONO % 10.2 % (2.0-8.0); NEUTROPHILS # 4.7 10^3/uL (1.5-8.5); PLATELET COUNT, AUTOMATED 184 10^3/uL (150-450); RED BLOOD COUNT 3.32 10^6/uL (4.30-6.10); WHITE BLOOD COUNT 6.4 10^3/uL (4.0-10.0)
[2023-05-23 06:31] LABS: CALCIUM LEVEL 8.8 MG/DL (8.3-10.6); CREATININE FOR GFR 1.3 MG/DL (0.70-1.30); GLOMERULAR FILTRATION RATE 56.5 (>35)
[2023-05-23 14:00] VITALS: BP 123/62; TEMP 97.7; O2SAT 95
[2023-05-23 20:30] VITALS: BP 123/61; TEMP 99.4; O2SAT 95
[2023-05-23] MEDS: predniSONE 20 MG TAB PO ONE (20:40)
[2023-05-23] MEDS: SENOKOT S TAB PO SCH (20:41)
[2023-05-24 04:57] VITALS: BP 124/62; TEMP 97.3; O2SAT 94
[2023-05-24 06:57] LABS: BASO % 0.5 % (0.0-1.0); EOS # 0.2 10^3/uL (0.0-0.5); EOS % 2.7 % (0.0-3.0); HEMATOCRIT 30.6 % (42.0-52.0); LYMPH # 0.4 10^3/uL (1.5-5.0); LYMPH % 7.4 % (24.0-44.0); MEAN CORPUSCULAR HGB CONC 32.7 g/dl (32.0-36.5); MEAN CORPUSCULAR VOLUME 94.7 fl (80.0-96.0); MONO # 0.4 10^3/uL (0.0-0.8); MONO % 7.2 % (2.0-8.0); NEUTROPHILS # 4.7 10^3/uL (1.5-8.5); NEUTROPHILS % 80.7 % (36.0-66.0); PLATELET COUNT, AUTOMATED 197 10^3/uL (150-450); RED BLOOD COUNT 3.23 10^6/uL (4.30-6.10); WHITE BLOOD COUNT 5.8 10^3/uL (4.0-10.0)
[2023-05-24 07:11] LABS: BLOOD UREA NITROGEN 29 MG/DL (9-23); CALCIUM LEVEL 8.5 MG/DL (8.3-10.6); CARBON DIOXIDE LEVEL 22 MMOL/L (20-31); CHLORIDE LEVEL 99 MMOL/L (98-107); CREATININE FOR GFR 1.15 MG/DL (0.70-1.30); GLOMERULAR FILTRATION RATE > 60.0 (>35); GLUCOSE, FASTING 288 MG/DL (74-106); POTASSIUM SERUM 4.8 MMOL/L (3.5-5.1); SODIUM LEVEL 130 MMOL/L (136-145)
[2023-05-24] MEDS: LEVEMIR (INSULIN DETEMIR) 1 UNITS/0.01ML SC SCH (08:47)
[2023-05-24] MEDS: predniSONE 20 MG TAB PO SCH (08:47)
[2023-05-24] MEDS: CEFDINIR 300 MG CAP (OMNICEF) PO SCH (10:57)
[2023-05-24] MEDS: TORSEMIDE 20 MG TAB PO SCH (10:57)
[2023-05-24] MEDS: PERCOCET 5MG/325MG TAB PO SCH (10:57)
[2023-05-24 14:00] VITALS: BP 121/68; TEMP 97.5; O2SAT 94
[2023-05-24 22:00] VITALS: BP 117/66; TEMP 97.7; O2SAT 94
[2023-05-25 05:12] VITALS: BP 128/64; TEMP 97.7; O2SAT 95
[2023-05-25 06:43] LABS: BASO % 0.5 % (0.0-1.0); EOS # 0.2 10^3/uL (0.0-0.5); EOS % 3.9 % (0.0-3.0); HEMATOCRIT 31.3 % (42.0-52.0); HEMOGLOBIN 10.4 g/dl (13.5-17.5); LYMPH % 17.3 % (24.0-44.0); MEAN CORPUSCULAR HEMOGLOBIN 31.2 pg (27.0-33.0); MEAN CORPUSCULAR HGB CONC 33.2 g/dl (32.0-36.5); MONO # 0.6 10^3/uL (0.0-0.8); MONO % 9.3 % (2.0-8.0); NEUTROPHILS # 3.9 10^3/uL (1.5-8.5); NEUTROPHILS % 66.1 % (36.0-66.0); PLATELET COUNT, AUTOMATED 220 10^3/uL (150-450); RED BLOOD COUNT 3.33 10^6/uL (4.30-6.10); WHITE BLOOD COUNT 5.9 10^3/uL (4.0-10.0)
[2023-05-25 07:13] LABS: BLOOD UREA NITROGEN 39 MG/DL (9-23); CALCIUM LEVEL 8.7 MG/DL (8.3-10.6); CARBON DIOXIDE LEVEL 24 MMOL/L (20-31); CHLORIDE LEVEL 102 MMOL/L (98-107); CREATININE FOR GFR 1.19 MG/DL (0.70-1.30); GLOMERULAR FILTRATION RATE > 60.0 (>35); GLUCOSE, FASTING 197 MG/DL (74-106); POTASSIUM SERUM 3.7 MMOL/L (3.5-5.1); SODIUM LEVEL 136 MMOL/L (136-145)
[2023-05-25] MEDS: COLCHICINE 0.6 MG TABLET PO SCH (08:14)
[2023-05-25 14:00] VITALS: BP 127/67; TEMP 97.5; O2SAT 93
[2023-05-25 22:00] VITALS: BP 123/63; TEMP 97.7; O2SAT 96
[2023-05-26 06:00] VITALS: BP 119/67; TEMP 97.3; O2SAT 94
[2023-05-26 06:46] LABS: HEMATOCRIT 33.1 % (42.0-52.0); HEMOGLOBIN 11.1 g/dl (13.5-17.5); MEAN CORPUSCULAR HGB CONC 33.5 g/dl (32.0-36.5); MEAN CORPUSCULAR VOLUME 95.4 fl (80.0-96.0); PLATELET COUNT, AUTOMATED 245 10^3/uL (150-450); RED BLOOD COUNT 3.47 10^6/uL (4.30-6.10); WHITE BLOOD COUNT 6.4 10^3/uL (4.0-10.0)
[2023-05-26 07:05] LABS: CALCIUM LEVEL 9.1 MG/DL (8.3-10.6); CREATININE FOR GFR 1.36 MG/DL (0.70-1.30); GLOMERULAR FILTRATION RATE 53.7 (>35); POTASSIUM SERUM 3.7 MMOL/L (3.5-5.1)
[2023-05-26 07:29] LABS: ATYPICAL LYMPH 1 % (0-5); BASOPHILS 1 % (0-1); EOSINOPHILS 7 % (0-3); LYMPHOCYTES 16 % (16-44); MONOCYTES 6 % (0-5); NEUTROPHILS 66 % (28-66); PLATELET ESTIMATE NORMAL (NORMAL)
[2023-05-26] MEDS ORDERED: PRED10TA2 PO (10:56)
[2023-05-26] MEDS ORDERED: DOXY100T PO (10:56)
[2023-05-26] MEDS ORDERED: CEFD300CAP PO (10:56)
[2023-05-26 14:00] VITALS: BP 119/67; TEMP 97.3; O2SAT 94
== END 2023-05-26 16:42 | disposition home or self-care (01) | DRG 871 ==
LOC: M ED 15:25 → M ED INP 19:49 → M MSPAV 22:47
PROVIDERS: ADMIT Internal Medicine Nephrology; ATTEND Internal Medicine
DX: A41.9 Sepsis, unspecified organism (principal); J18.9 Pneumonia, unspecified organism; I50.32 Chronic diastolic (congestive) heart failure; I13.0 Hypertensive heart and chronic kidney disease with heart failure and stage 1 through stage 4 chronic kidney disease, or unspecified chronic kidney disease; N17.9 Acute kidney failure, unspecified; E87.1 Hypo-osmolality and hyponatremia; I25.10 Atherosclerotic heart disease of native coronary artery without angina pectoris; N18.30 Chronic kidney disease, stage 3 unspecified; E11.22 Type 2 diabetes mellitus with diabetic chronic kidney disease; E78.5 Hyperlipidemia, unspecified; C61 Malignant neoplasm of prostate; K21.9 Gastro-esophageal reflux disease without esophagitis; M11.262 Other chondrocalcinosis, left knee; K59.09 Other constipation; R33.9 Retention of urine, unspecified; M10.9 Gout, unspecified; Z90.5 Acquired absence of kidney; Z86.16 Personal history of COVID-19; Z90.49 Acquired absence of other specified parts of digestive tract; Z98.41 Cataract extraction status, right eye; Z98.42 Cataract extraction status, left eye; Z87.891 Personal history of nicotine dependence; Z79.82 Long term (current) use of aspirin; Z79.4 Long term (current) use of insulin; Z79.899 Other long term (current) drug therapy; Z88.8 Allergy status to other drugs, medicaments and biological substances; Z95.5 Presence of coronary angioplasty implant and graft; Z79.890 Hormone replacement therapy; Z66 Do not resuscitate

== ENCOUNTER → 2023-06-19 | Outpatient (CLI) | payer MEDICARE, BC ==
[~2023-06-19] MED LIST changes: +BACTDSTA PO; +DOCU100C16 PO; +ENZA40TA PO; +NOVOINJ3 SC; +PRED10TA2 PO; +TAMS1CAP17 PO
== END ==
LOC: M LAB 11:37
PROVIDERS: ATTEND Urology
DX: C61 Malignant neoplasm of prostate (principal)

== ENCOUNTER → 2023-08-24 | Outpatient (CLI) | payer MEDICARE, BC | LOC: M LAB 09:40 | PROVIDERS: ATTEND Urology | DX: C61 Malignant neoplasm of prostate (principal) ==

== ENCOUNTER → 2023-09-11 | Outpatient (CLI) | payer MEDICARE, BC | LOC: M RAD 14:14 | PROVIDERS: ATTEND Internal Medicine Critical Care Medicine | DX: R91.8 Other nonspecific abnormal finding of lung field (principal) ==

== ENCOUNTER → 2023-10-28 | Outpatient (CLI) | payer MEDICARE, BC ==
[2023-10-28 11:31] LABS: PROSTATIC SPECIFIC AG MONITOR 0.41 NG/ML (< 4.00)
[2023-10-28 11:39] LABS: TESTOSTERONE < 7 NG/DL (241-827)
== END ==
LOC: M LAB 09:06
PROVIDERS: ATTEND Urology
DX: C61 Malignant neoplasm of prostate (principal)

== ENCOUNTER 2023-12-14 17:33 | Emergency (ER) | payer MEDICARE, BC ==
[~2023-12-14] VITALS: Ht 172.7 cm; Wt 104.5 kg
[2023-12-14 17:58] LABS: BASO % 0.6 % (0.0-1.0); EOS # 0.3 10^3/uL (0.0-0.5); EOS % 4.8 % (0.0-3.0); HEMATOCRIT 40.4 % (42.0-52.0); LYMPH # 1.8 10^3/uL (1.5-5.0); LYMPH % 25.7 % (24.0-44.0); MEAN CORPUSCULAR HEMOGLOBIN 32.3 pg (27.0-33.0); MEAN CORPUSCULAR HGB CONC 34.7 g/dl (32.0-36.5); MEAN CORPUSCULAR VOLUME 93.3 fl (80.0-96.0); MONO # 0.7 10^3/uL (0.0-0.8); MONO % 10.1 % (2.0-8.0); NEUTROPHILS # 4.2 10^3/uL (1.5-8.5); NEUTROPHILS % 58.4 % (36.0-66.0); PLATELET COUNT, AUTOMATED 169 10^3/uL (150-450); RED BLOOD COUNT 4.33 10^6/uL (4.30-6.10); WHITE BLOOD COUNT 7.2 10^3/uL (4.0-10.0)
[2023-12-14 18:22] LABS: LIPASE 87 U/L (12-53)
[2023-12-14 18:24] LABS: CPK CREATINE PHOSPHOKINASE 37 U/L (46-171)
[2023-12-14 18:25] LABS: ALBUMIN 3.8 G/DL (3.2-5.2); ALKALINE PHOSPHATASE 106 U/L (40-129); ALT/SGPT 16 U/L (7.0-40); AST/SGOT 13 U/L (<34); BILIRUBIN,DIRECT 0.1 MG/DL (<0.4); BILIRUBIN,TOTAL 0.4 MG/DL (0.3-1.2); CK-MB VALUE MASS < 1.0 NG/ML (<3.6); TOTAL PROTEIN 7.3 G/DL (5.7-8.2)
[2023-12-14 19:14] LABS: INR 0.91; PROTHROMBIN TIME 12.6 SECONDS (12.5-14.5)
[2023-12-14 19:34] LABS: PARTIAL THROMBOPLASTIN TIME 25.5 SECONDS (24.8-34.2)
[2023-12-14 19:45] LABS: BLOOD UREA NITROGEN 35 MG/DL (9-23); CALCIUM LEVEL 9.6 MG/DL (8.3-10.6); CARBON DIOXIDE LEVEL 27 MMOL/L (20-31); CHLORIDE LEVEL 102 MMOL/L (98-107); CK-MB VALUE MASS < 1.0 NG/ML (<3.6); CPK CREATINE PHOSPHOKINASE 33 U/L (46-171); GLOMERULAR FILTRATION RATE 47.9 (>35); GLUCOSE, FASTING 205 MG/DL (74-106); MAGNESIUM LEVEL 2.4 MG/DL (1.8-2.4); MB/CK RELATIVE INDEX 3.03 (< OR =4); POTASSIUM SERUM 3.8 MMOL/L (3.5-5.1); SODIUM LEVEL 139 MMOL/L (136-145)
[2023-12-14] MEDS ORDERED: VENTAER INH (20:30)
[2023-12-14] MEDS ORDERED: MUCI600T31 PO (20:30)
[2023-12-14] MEDS ORDERED: AMOX875T2 PO (20:30)
[2023-12-14] MEDS ORDERED: DOXY-441 PO (20:30)
[2023-12-14 21:00] VITALS: BP 137/70; O2SAT 97
[2023-12-14 21:17] VITALS: TEMP 98.2
== END 2023-12-14 21:17 | disposition home or self-care (01) ==
LOC: M ED 17:33
DX: J18.1 Lobar pneumonia, unspecified organism (principal); I44.0 Atrioventricular block, first degree; I44.4 Left anterior fascicular block; I45.10 Unspecified right bundle-branch block; I45.81 Long QT syndrome; I10 Essential (primary) hypertension; K21.9 Gastro-esophageal reflux disease without esophagitis; C61 Malignant neoplasm of prostate; Z86.79 Personal history of other diseases of the circulatory system; Z90.49 Acquired absence of other specified parts of digestive tract; Z88.8 Allergy status to other drugs, medicaments and biological substances; Z79.4 Long term (current) use of insulin; Z79.52 Long term (current) use of systemic steroids; Z79.2 Long term (current) use of antibiotics; Z79.1 Long term (current) use of non-steroidal anti-inflammatories (NSAID); Z79.899 Other long term (current) drug therapy

== ENCOUNTER → 2023-12-28 | Outpatient (CLI) | payer MEDICARE, BC ==
[~2023-12-28] MED LIST changes: +AMOX875T2 PO; +DOXY-441 PO; +VENTAER INH
[2023-12-28 10:29] LABS: PROSTATIC SPECIFIC AG MONITOR 2.34 NG/ML (< 4.00)
== END ==
LOC: M LAB 08:56
PROVIDERS: ATTEND Urology
DX: C61 Malignant neoplasm of prostate (principal)

== ENCOUNTER → 2024-01-01 | Outpatient (CLI) | payer MEDICARE, BC | LOC: M RAD 14:21 | PROVIDERS: ATTEND Nurse Practitioner Family | DX: J18.9 Pneumonia, unspecified organism (principal) ==

== ENCOUNTER → 2024-03-07 | Outpatient (CLI) | payer MEDICARE, BC ==
[2024-03-07 09:53] LABS: PROSTATIC SPECIFIC AG MONITOR 5.27 NG/ML (< 4.00)
== END ==
LOC: M LAB 08:57
PROVIDERS: ATTEND Urology
DX: C61 Malignant neoplasm of prostate (principal)

== ENCOUNTER → 2024-04-07 | Outpatient (CLI) | payer MEDICARE, BC ==
[2024-04-07 10:06] LABS: PROSTATIC SPECIFIC AG MONITOR 0.9 NG/ML (< 4.00)
== END ==
LOC: M LAB 09:17
PROVIDERS: ATTEND Urology
DX: C61 Malignant neoplasm of prostate (principal)

== ENCOUNTER 2024-05-26 18:10 | Inpatient (IN) | payer MEDICARE, BC ==
[~2024-05-26] VITALS: Ht 180.3 cm; Wt 104.5 kg
[2024-05-26 18:57] LABS: BASO % 0.2 % (0.0-1.0); EOS # 0.1 10^3/uL (0.0-0.5); EOS % 0.4 % (0.0-3.0); HEMOGLOBIN 12.4 g/dl (13.5-17.5); LYMPH # 0.9 10^3/uL (1.5-5.0); LYMPH % 6.8 % (24.0-44.0); MEAN CORPUSCULAR HEMOGLOBIN 30.8 pg (27.0-33.0); MEAN CORPUSCULAR HGB CONC 33.5 g/dl (32.0-36.5); MONO # 1.1 10^3/uL (0.0-0.8); MONO % 8.1 % (2.0-8.0); NEUTROPHILS # 11.5 10^3/uL (1.5-8.5); NEUTROPHILS % 83.9 % (36.0-66.0); PLATELET COUNT, AUTOMATED 269 10^3/uL (150-450); RED BLOOD COUNT 4.02 10^6/uL (4.30-6.10); WHITE BLOOD COUNT 13.7 10^3/uL (4.0-10.0)
[2024-05-26 19:19] LABS: CALCIUM LEVEL 8.6 MG/DL (8.3-10.6); CREATININE FOR GFR 1.76 MG/DL (0.70-1.30); GLOMERULAR FILTRATION RATE 38.4 (>35); POTASSIUM SERUM 4.1 MMOL/L (3.5-5.1)
[2024-05-26 19:32] LABS: URIC ACID 9.6 MG/DL (3.7-9.2)
[2024-05-26 19:46] LABS: ERYTHROCYTE SEDIMENTATION RATE 94 mm/hr (0-20)
[2024-05-26 19:47] LABS: C REACTIVE PROTEIN QUANTITATIV 25.81 MG/DL (<1.0)
[2024-05-27] MEDS ORDERED: BACTDSTA PO (00:35)
[2024-05-27] MEDS ORDERED: ONDA-284 PO (00:39)
[2024-05-27] MEDS ORDERED: TIRZ7.5P SC (00:39)
[2024-05-27] MEDS ORDERED: COLC0.6T47 PO (00:39)
[2024-05-27] MEDS ORDERED: REPA140I2 SC (00:39)
[2024-05-27] MEDS ORDERED: ERLE60TA PO (00:39)
[2024-05-27] MEDS ORDERED: BASA100I SC ×2 (00:39)
[2024-05-27] MEDS ORDERED: HOME MED LIST COMPLETE! XX SCH (00:40)
[2024-05-27] MEDS ORDERED: VANCOMYCIN HCL 1,000 MG, VIAL MATE ADAPTER 1 EACH in NS 250 ML IV SCH (04:05)
[2024-05-27] MEDS ORDERED: MAALOX 30 ML SUSP *UDC PO PRN (04:05)
[2024-05-27 06:33] LABS: INR 1.19; PROTHROMBIN TIME 15.4 SECONDS (12.5-14.5)
[2024-05-27] MEDS: VANCOMYCIN HCL 2,000 MG, VIAL MATE ADAPTER 1 EACH in NS 500 ML IV ONE (06:45)
[2024-05-27] MEDS ORDERED: GLUCAGON INJ 1MG VIAL SC PRN (07:40)
[2024-05-27] MEDS ORDERED: cefTRIAXone SOD 1 GM in DEXTROSE 5% (D5W) ADV/MINI-BAG 50 ML IV SCH (07:40)
[2024-05-27] MEDS ORDERED: ONDANSETRON 4MG ORAL DISINTEGRATING TAB PO PRN (07:40)
[2024-05-27] MEDS ORDERED: GLUCOSE 4 GM CHEW PO PRN (07:40)
[2024-05-27] MEDS ORDERED: DEXTROSE 50% 50ML SYRINGE IV PRN (07:40)
[2024-05-27] MEDS ORDERED: VANCOMYCIN HCL 1,250 MG, VIAL MATE ADAPTER 1 EACH in NS 250 ML IV SCH (08:00)
[2024-05-27] MEDS: DOCUSATE SODIUM 100MG CAPSULE PO SCH ×2 (08:30→09:15)
[2024-05-27 08:35] LABS: HEMATOCRIT 33.3 % (42.0-52.0); HEMOGLOBIN 11.3 g/dl (13.5-17.5); MEAN CORPUSCULAR HEMOGLOBIN 31.3 pg (27.0-33.0); MEAN CORPUSCULAR HGB CONC 33.9 g/dl (32.0-36.5); MEAN CORPUSCULAR VOLUME 92.2 fl (80.0-96.0); PLATELET COUNT, AUTOMATED 228 10^3/uL (150-450); RED BLOOD COUNT 3.61 10^6/uL (4.30-6.10); WHITE BLOOD COUNT 10.4 10^3/uL (4.0-10.0)
[2024-05-27 08:58] LABS: CRYSTALS, BODY FLUID URIC ACID (NONE SEEN); SOURCE, BODY FLUID CRYSTALS LFT KNEE
[2024-05-27 08:59] LABS: ALBUMIN 2.8 G/DL (3.2-5.2); ALKALINE PHOSPHATASE 70 U/L (40-129); ALT/SGPT < 9 U/L (7.0-40); AST/SGOT < 8 U/L (<34); BILIRUBIN,TOTAL 0.6 MG/DL (0.3-1.2); BLOOD UREA NITROGEN 27 MG/DL (9-23); CALCIUM LEVEL 8.6 MG/DL (8.3-10.6); CARBON DIOXIDE LEVEL 23 MMOL/L (20-31); CHLORIDE LEVEL 98 MMOL/L (98-107); CREATININE FOR GFR 1.68 MG/DL (0.70-1.30); GLOMERULAR FILTRATION RATE 40.6 (>35); GLUCOSE, FASTING 224 MG/DL (74-106); POTASSIUM SERUM 3.8 MMOL/L (3.5-5.1); SODIUM LEVEL 133 MMOL/L (136-145); TOTAL PROTEIN 6.4 G/DL (5.7-8.2)
[2024-05-27] MEDS ORDERED: INSULIN LISPRO (NovoLOG) PER UNIT SC SCH ×3 (09:00→21:00)
[2024-05-27 09:15] LABS: SOURCE, BODY FLUID LFT KNEE; SYNOVIAL FLUID COLOR YELLOW (COLORLESS)
[2024-05-27] MEDS: METOPROLOL TART 25 MG TABLET PO SCH (09:17)
[2024-05-27] MEDS: cefTRIAXone SOD 2 GM in DEXTROSE 5% (D5W) ADV/MINI-BAG 50 ML IV SCH (09:36)
[2024-05-27] MEDS: NS (Normal Saline) 0.9% 1,000 ML IV SCH ×2 (09:36→17:18)
[2024-05-27] MEDS: PANTOPRAZOLE 40MG TAB (PROTONIX) PO SCH (09:37)
[2024-05-27] MEDS: LanTUS (INSULIN GLARGINE INJ) 1 UNITS/0.01 ML SC SCH ×2 (09:37→22:09)
[2024-05-27 11:06] VITALS: BP 124/66; TEMP 97.9; O2SAT 96
[2024-05-27] MEDS: COLCHICINE 0.6 MG TABLET PO SCH (11:57)
[2024-05-27 12:00] VITALS: BP 119/63; TEMP 97.9; O2SAT 95
[2024-05-27] MEDS: HEPARIN SOD (PORCINE) 5000UNITS/ML 1ML VIAL/SYRINGE SC SCH (13:49)
[2024-05-27] MEDS: INSULIN LISPRO (NovoLOG) PER UNIT SC SCH ×3 (13:50→22:00)
[2024-05-27] MEDS: predniSONE 20 MG TAB PO SCH (17:17)
[2024-05-27 21:20] VITALS: BP 106/48; TEMP 100.4; O2SAT 93
[2024-05-27] MEDS: VANCOMYCIN HCL 500 MG in DEXTROSE 5% (D5W) MINI-BAG PLU 100 ML IV SCH (22:09)
[2024-05-27] MEDS: ACETAMINOPHEN 325 MG TAB PO PRN (22:10)
[2024-05-27 22:46] VITALS: BP 107/54
[2024-05-27] MEDS: TORSEMIDE 20 MG TAB PO SCH (23:10)
[2024-05-28] VITALS (9 sets, daily range): BP systolic 104–135; BP diastolic 48–63; TEMP 96.5–97.9; O2SAT 94–98
[2024-05-28 07:10] LABS: HEMATOCRIT 30.5 % (42.0-52.0); HEMOGLOBIN 10.2 g/dl (13.5-17.5); MEAN CORPUSCULAR HEMOGLOBIN 31.2 pg (27.0-33.0); MEAN CORPUSCULAR HGB CONC 33.4 g/dl (32.0-36.5); MEAN CORPUSCULAR VOLUME 93.3 fl (80.0-96.0); PLATELET COUNT, AUTOMATED 199 10^3/uL (150-450); RED BLOOD COUNT 3.27 10^6/uL (4.30-6.10)
[2024-05-28] MEDS ORDERED: VANCOMYCIN HCL 1,250 MG, VIAL MATE ADAPTER 1 EACH in NS 250 ML IV SCH (08:00)
[2024-05-28 08:11] LABS: ALBUMIN 2.4 G/DL (3.2-5.2); ALKALINE PHOSPHATASE 62 U/L (40-129); ALT/SGPT < 9 U/L (7.0-40); AST/SGOT < 8 U/L (<34); BILIRUBIN,TOTAL 0.3 MG/DL (0.3-1.2); BLOOD UREA NITROGEN 26 MG/DL (9-23); C REACTIVE PROTEIN QUANTITATIV 22.41 MG/DL (<1.0); CALCIUM LEVEL 8.2 MG/DL (8.3-10.6); CARBON DIOXIDE LEVEL 22 MMOL/L (20-31); CHLORIDE LEVEL 102 MMOL/L (98-107); CREATININE FOR GFR 1.42 MG/DL (0.70-1.30); GLOMERULAR FILTRATION RATE 49.6 (>35); GLUCOSE, FASTING 236 MG/DL (74-106); POTASSIUM SERUM 3.7 MMOL/L (3.5-5.1); SODIUM LEVEL 135 MMOL/L (136-145); TOTAL PROTEIN 5.8 G/DL (5.7-8.2)
[2024-05-28] MEDS: SPIRONOLACTONE 25 MG TAB PO SCH (08:34)
[2024-05-28] MEDS: INSULIN LISPRO (NovoLOG) PER UNIT SC SCH (08:34)
[2024-05-28] MEDS: ASPIRIN 81MG ENTERIC TABLET PO SCH (08:35)
[2024-05-28] MEDS: VANCOMYCIN HCL 1,000 MG, VIAL MATE ADAPTER 1 EACH in NS 250 ML IV SCH (08:37)
[2024-05-29] VITALS (7 sets, daily range): BP systolic 121–128; BP diastolic 51–74; TEMP 96.7–98.1; O2SAT 94–97
[2024-05-29 06:27] LABS: HEMATOCRIT 29.5 % (42.0-52.0); HEMOGLOBIN 9.9 g/dl (13.5-17.5); MEAN CORPUSCULAR HEMOGLOBIN 31.3 pg (27.0-33.0); MEAN CORPUSCULAR HGB CONC 33.6 g/dl (32.0-36.5); MEAN CORPUSCULAR VOLUME 93.4 fl (80.0-96.0); PLATELET COUNT, AUTOMATED 192 10^3/uL (150-450); RED BLOOD COUNT 3.16 10^6/uL (4.30-6.10); WHITE BLOOD COUNT 5.6 10^3/uL (4.0-10.0)
[2024-05-29 06:36] LABS: ALBUMIN 2.3 G/DL (3.2-5.2); ALKALINE PHOSPHATASE 62 U/L (40-129); ALT/SGPT < 9 U/L (7.0-40); AST/SGOT < 8 U/L (<34); BILIRUBIN,TOTAL 0.2 MG/DL (0.3-1.2); BLOOD UREA NITROGEN 25 MG/DL (9-23); CALCIUM LEVEL 8.3 MG/DL (8.3-10.6); CARBON DIOXIDE LEVEL 23 MMOL/L (20-31); CHLORIDE LEVEL 104 MMOL/L (98-107); CREATININE FOR GFR 1.17 MG/DL (0.70-1.30); GLOMERULAR FILTRATION RATE 62.6 (>35); GLUCOSE, FASTING 137 MG/DL (74-106); POTASSIUM SERUM 3.7 MMOL/L (3.5-5.1); SODIUM LEVEL 136 MMOL/L (136-145); TOTAL PROTEIN 5.6 G/DL (5.7-8.2)
[2024-05-29 07:02] LABS: C REACTIVE PROTEIN QUANTITATIV 13.05 MG/DL (<1.0)
[2024-05-30 03:50] VITALS: BP 119/52; TEMP 97.5; O2SAT 96
[2024-05-30 06:39] LABS: HEMATOCRIT 30.9 % (42.0-52.0); MEAN CORPUSCULAR HEMOGLOBIN 30.3 pg (27.0-33.0); MEAN CORPUSCULAR HGB CONC 32.4 g/dl (32.0-36.5); MEAN CORPUSCULAR VOLUME 93.6 fl (80.0-96.0); PLATELET COUNT, AUTOMATED 208 10^3/uL (150-450); WHITE BLOOD COUNT 5.8 10^3/uL (4.0-10.0)
[2024-05-30 07:13] LABS: C REACTIVE PROTEIN QUANTITATIV 6.05 MG/DL (<1.0)
[2024-05-30 07:17] LABS: ALBUMIN 2.5 G/DL (3.2-5.2); ALKALINE PHOSPHATASE 73 U/L (40-129); ALT/SGPT < 9 U/L (7.0-40); AST/SGOT < 8 U/L (<34); BILIRUBIN,TOTAL 0.2 MG/DL (0.3-1.2); BLOOD UREA NITROGEN 25 MG/DL (9-23); CALCIUM LEVEL 8.5 MG/DL (8.3-10.6); CARBON DIOXIDE LEVEL 22 MMOL/L (20-31); CHLORIDE LEVEL 104 MMOL/L (98-107); CREATININE FOR GFR 1.08 MG/DL (0.70-1.30); GLOMERULAR FILTRATION RATE 68.9 (>35); GLUCOSE, FASTING 188 MG/DL (74-106); POTASSIUM SERUM 3.6 MMOL/L (3.5-5.1); SODIUM LEVEL 138 MMOL/L (136-145); TOTAL PROTEIN 5.9 G/DL (5.7-8.2)
[2024-05-30 08:00] VITALS: BP 119/55; TEMP 97.7; O2SAT 99
[2024-05-30 08:02] VITALS: BP 119/52
[2024-05-30 12:00] VITALS: BP 117/57; TEMP 97.9; O2SAT 97
[2024-05-30] MEDS: MOM 30ML SUSPENSION UDC PO PRN (14:00)
[2024-05-30] MEDS ORDERED: PRED20TA PO (14:32)
== END 2024-05-30 15:31 | disposition home health service (06) | DRG 554 ==
LOC: M ED 18:10 → EDBD 18:10 → M ED INP 05-27 04:02 → M MSPAV 05-27 10:53
PROVIDERS: ADMIT Student in an Organized Health Care Education/Training Program; ATTEND Internal Medicine
PROC: 0S9D3ZX Drainage of Left Knee Joint, Percutaneous Approach, Diagnostic (ICD-10-PCS; principal; 2024-05-27)
DX: M10.262 Drug-induced gout, left knee (principal); I13.0 Hypertensive heart and chronic kidney disease with heart failure and stage 1 through stage 4 chronic kidney disease, or unspecified chronic kidney disease; D84.821 Immunodeficiency due to drugs; I50.9 Heart failure, unspecified; E11.22 Type 2 diabetes mellitus with diabetic chronic kidney disease; M11.261 Other chondrocalcinosis, right knee; M25.462 Effusion, left knee; C61 Malignant neoplasm of prostate; T45.1X5A Adverse effect of antineoplastic and immunosuppressive drugs, initial encounter; M17.12 Unilateral primary osteoarthritis, left knee; N18.30 Chronic kidney disease, stage 3 unspecified; I25.10 Atherosclerotic heart disease of native coronary artery without angina pectoris; E78.5 Hyperlipidemia, unspecified; Z79.69 Long term (current) use of other immunomodulators and immunosuppressants; Z79.4 Long term (current) use of insulin; Z79.82 Long term (current) use of aspirin; Z79.899 Other long term (current) drug therapy; Z88.8 Allergy status to other drugs, medicaments and biological substances

== ENCOUNTER → 2024-06-06 | Outpatient (REF) | payer MEDICARE, BC ==
[~2024-06-06] MED LIST changes: +BASA100I SC; +COLC0.6T47 PO; +ERLE60TA PO; -FLOM0.4C39 PO; +ONDA-284 PO; +PRED20TA PO; +REPA140I2 SC; +TAMS-18 PO; +TIRZ7.5P SC
[2024-06-06 18:04] LABS: URIC ACID 6.4 MG/DL (3.7-9.2)
[2024-06-06 18:07] LABS: C REACTIVE PROTEIN QUANTITATIV 0.86 MG/DL (<1.0)
== END ==
LOC: M LAB REF 17:08
PROVIDERS: ATTEND Nurse Practitioner Family
DX: M10.9 Gout, unspecified (principal)

== ENCOUNTER → 2024-09-12 | Outpatient (CLI) | payer MEDICARE, BC ==
[~2024-09-12] MED LIST changes: +CARDIAC STRESS TEST RESCUE BOX 1 KIT EA XX ONE
== END ==
LOC: M CARPUL 11:10
PROVIDERS: ATTEND Physician Assistant
DX: I08.0 Rheumatic disorders of both mitral and aortic valves (principal); I37.1 Nonrheumatic pulmonary valve insufficiency; I50.30 Unspecified diastolic (congestive) heart failure; I35.8 Other nonrheumatic aortic valve disorders; J90 Pleural effusion, not elsewhere classified

== ENCOUNTER → 2024-10-13 | Outpatient (CLI) | payer MEDICARE, BC ==
[~2024-10-13] MED LIST changes: -CARDIAC STRESS TEST RESCUE BOX 1 KIT EA XX ONE
[2024-10-13 10:29] LABS: PROSTATIC SPECIFIC AG MONITOR 4.11 NG/ML (< 4.00)
[2024-10-13 10:33] LABS: TESTOSTERONE 23.0 NG/DL (241-827)
== END ==
LOC: M LAB 09:17
PROVIDERS: ATTEND Urology
DX: C61 Malignant neoplasm of prostate (principal)

== ENCOUNTER → 2024-11-08 | Outpatient (CLI) | payer MEDICARE, BC ==
[~2024-11-08] MED LIST changes: -COLC0.6T47 PO; +COLC0.6T53 PO
[2024-11-08 12:03] LABS: PROSTATIC SPECIFIC AG MONITOR 0.81 NG/ML (< 4.00)
[2024-11-08 12:08] LABS: TESTOSTERONE 26.0 NG/DL (241-827)
== END ==
LOC: M LAB 09:36
PROVIDERS: ATTEND Urology
DX: C61 Malignant neoplasm of prostate (principal)

== ENCOUNTER → 2024-11-14 | Outpatient (REF) | payer MEDICARE, BC ==
[2024-11-14 17:49] LABS: APPEARANCE, URINE CLEAR (CLEAR); BACTERIA, URINE AUTO 2+ (NEGATIVE); BILIRUBIN, URINE AUTO NEGATIVE (NEGATIVE); BLOOD, URINE BLOOD 1+ (NEGATIVE); GLUCOSE, URINE (UA) AUTO NEGATIVE (NEGATIVE); KETONE, URINE AUTO NEGATIVE (NEGATIVE); LEUKOCYTE ESTERASE, URINE AUTO 2+ (NEGATIVE); NITRITE, URINE AUTO NEGATIVE (NEGATIVE); PROTEIN, URINE AUTO NEGATIVE (NEGATIVE); RBC, URINE AUTO 8 /HPF (0-3); SPECIFIC GRAVITY URINE AUTO 1.009 (1.002-1.035); SQUAMOUS EPITHELIAL CELL UR AU 0 /HPF (0-6); UROBILINOGEN, URINE AUTO 0.2 mg/dL (0.0-2.0); WBC, URINE AUTO 35 /HPF (0-3)
== END ==
LOC: M SMT 16:53
PROVIDERS: ATTEND Urology
DX: N39.0 Urinary tract infection, site not specified (principal)

== ENCOUNTER → 2024-12-07 | Outpatient (REF) | payer MEDICARE, BC ==
[2024-12-07 17:28] LABS: APPEARANCE, URINE HAZY (CLEAR); BACTERIA, URINE AUTO 1+ (NEGATIVE); BILIRUBIN, URINE AUTO 1+ (NEGATIVE); BLOOD, URINE BLOOD 3+ (NEGATIVE); GLUCOSE, URINE (UA) AUTO NEGATIVE (NEGATIVE); KETONE, URINE AUTO NEGATIVE (NEGATIVE); LEUKOCYTE ESTERASE, URINE AUTO 2+ (NEGATIVE); MUCUS, URINE SMALL (NEGATIVE); NITRITE, URINE AUTO NEGATIVE (NEGATIVE); PROTEIN, URINE AUTO 1+ mg/dL (NEGATIVE); RBC, URINE AUTO TNTC /HPF (0-3); SPECIFIC GRAVITY URINE AUTO 1.014 (1.002-1.035); SQUAMOUS EPITHELIAL CELL UR AU 1 /HPF (0-6); UROBILINOGEN, URINE AUTO 4.0 mg/dL (0.0-2.0); WBC, URINE AUTO 99 /HPF (0-3)
== END ==
LOC: M SMT 17:00 → EEVIPCON 17:00
PROVIDERS: ATTEND Urology
DX: N39.0 Urinary tract infection, site not specified (principal)